=== PATIENT | female | born 1970 | race Caucasian/White ===

== ENCOUNTER 2021-11-28 14:43 | Outpatient (CLI) | payer BC, SELFPAY ==
[2021-11-28 13:20] LABS: Albumin* 4.4 g/dL (3.3-5.0); Chloride* 100 mmol/L (96-114)
[2021-11-28 13:21] LABS: Potassium* 4.1 mmol/L (3.6-5.1); Sodium* 137 mmol/L (135-149)
[2021-11-28 13:23] LABS: Alanine Aminotransferase* 11 U/L (4-35); Alkaline Phosphatase* 62 U/L (40-150); Aspartate Amino Transferase* 34 U/L (12-35); Bilirubin Total* 0.7 mg/dL (0.1-1.5); Blood Urea Nitrogen* 8 mg/dL (7-30); Carbon Dioxide* 30 mmol/L (20-32); Cholesterol* 282 mg/dL (90-199); Creatinine* 0.6 mg/dL (0.5-1.5); Estimated Glomerular Filt Rate 109 ml/min; Glucose* 110 mg/dL (60-115); Total Protein* 7.6 g/dL (6.0-8.3); Triglycerides* 120 mg/dL (40-149)
[2021-11-28 13:24] LABS: Calcium* 9.7 mg/dL (8.4-10.6); HDL Cholesterol* 96 mg/dL (>=50); LDL Cholesterol Calculated 162 mg/dL (<100)
== END 2021-11-28 14:44 | disposition home or self-care (01) ==
PROVIDERS: PCP Family Medicine; Visit Provider Family Medicine
DX: Z00.00 Encounter for general adult medical examination without abnormal findings (principal); E78.5 Hyperlipidemia, unspecified; F41.9 Anxiety disorder, unspecified
CPT/HCPCS: 80053; 80061

== ENCOUNTER 2021-12-13 12:15 | Outpatient (CLI) | payer BC, SELFPAY ==
--- OUTSIDE RECORDS SUMMARY | 2021-12-20 09:02 | XMS_ITS | Encounter Summary ---
:1970 Author Organization [facility] Address [address] [place] [address] Care Team Providers Name Role Phone Unavailable Primary Care Provider Unavailable Encounter Details Date Type Department Care Team Description 10/03/2011 Hospital Encounter [facility] Jim Schultz, P.A.-C. [address] [place], [place] [phone] (Wo rk) Social History Tobacco Use Types Packs/Day Years Used Date Smoking Tobacco: Never Assessed Sex Assigned at Date Recorded Not on file documented as of this encounter Miscellaneous Notes Telephone Encounter - Conversion, Historical Provider Ser - 10/03/2011 12:00 AM CDT [id number] Please call patient at [phone] She has some questions that she did not get answered at visit today thanks [facility] Document Id: [id number] Telephone Encounter - Radha Donald R.N. - 10/03/2011 12:00 AM CDT [id number] Patient called and reports that she just recalled that she has had some recurrent problems with her right hip dislocating. Last occurred about 2 months ago. Pain level in hip today is 3-4. She is to follow up with you in 4-6 weeks. Do you still want her to go to therapy for her right knee? Please callpatient at number listed below. Source[facility] Document Id: [id number] Telephone Encounter - Radha Donald R.N. - 10/03/2011 12:00 AM CDT [id number] Telephone call to patient regarding hip pain and therapy. Discussed this with CULLEN Terrell .and she recommended that patient tell the physical therapist about her hip pain when she goes for her PT appointment. Patient voices understanding. Source: [facility] Document Id: [id number] documented in this encounter Plan of Treatment Not on filedocumented as of this encounter Visit Diagnoses Not on filedocumented in this encounter
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
--- OUTSIDE RECORDS SUMMARY | 2021-12-20 09:02 | XMS_ITS | Encounter Summary ---
:1970 Author Organization [facility] Address [address] [place] [address] Care Team Providers Name Role Phone Catarina Hutton M.D. Primary Care Provider [phone] Encounter Details Date Type Department Care Team Description 08/26/2019 Orders Only RST PCP [facility] MNT Staci Hutton Mammogram Catarina Woody M.D. Breast Cancer [address] [place] [phone] (Wo rk) Social History Tobacco Use Types [...] on file documented as of this encounter Plan of Treatment Not on filedocumented as of this encounter Visit Diagnoses Diagnosis Screening Mammogram Breast Cancer documented in this encounter Additional Health Concerns Assessment Noted Time PHQ-9 Depression Total Score: 11 04/13/2012 12:[address] documented as of this encounter Care Teams Diamond Selector Relationship Specialty Start Date End Date Catarina Hutton M.D. PCP - General Family Medicine 01/05/[address] [place] [phone] documented as of this encounter
--- OUTSIDE RECORDS SUMMARY | 2021-12-20 09:02 | XMS_ITS | Encounter Summary ---
:1970 Author Organization [facility] Address [address] [place] [address] Care Team Providers Name Role Phone Catarina Hutton M.D. Primary Care Provider [phone] Reason for Visit Reason Comments Annual Exam Gynecologic Exam Outpatient (Routine) - Closed Specialty Diagnoses / Procedures Referred By Contact Refer red To Contact Family Medicine Diagnoses FAM EST [facility] M.D. [address] [place] [phone] Referral ID Status Reason Start Date Expiration Date Visits Requ ested Visits Authorized [id number] Closed 01/09/2018 01/09/2019 1 1 Encounter Details Date Type Department Care Team Description 01/27/2018 Office Visit Department of [facility] Edison Hutton reventive Gynecological Exam (Primary Dx); Cheryl Stein M.D. Pain Thoracic Spine; [place] [address] Pap Smea r Examination [address] [address] [place], [place] [phone] (Work) [phone] Social History Tobacco Use Types Packs/Day Years [...] Sign Reading Time Taken Comments Blood Pressure 125/76 01/27/2018 2:50 PM HYDRAULIC BULL RIVETER OPERATOR Pulse 77 01/27/2018 2:50 PM HYDRAULIC BULL RIVETER OPERATOR Temperature - - Respiratory Rate - - Oxygen Saturation - - Inhaled Oxygen Concentration - - Weight 47 kg (103 lb 9.9 oz) 01/27/2018 2:50 PM HYDRAULIC BULL RIVETER OPERATOR Height 156 cm (5' 1.42) 01/27/2018 2:50 PM HYDRAULIC BULL RIVETER OPERATOR Body Mass Index 19.31 01/27/2018 2:50 PM HYDRAULIC BULL RIVETER OPERATOR documented in this encounter Progress Notes Catarina Hutton M.D. - 01/27/2018 3:00 PM CST CHIEF COMPLAINT / REASON FOR VISIT Carly Doty is a 47 y.o. female who presents for evaluation of Annual Exam and Gynecologic Exam. HISTORY OF PRESENT ILLNESS Carly presents today for a gynecologic exam. She has had cervical cancer in the past which was treated with cryotherapy per her report. She has not recently had a pap smear. ?? Concerning her sore throat, she has noticed some improvement since starting omeprazole approximatelytwo weeks ago. ?? She also notes that she has been experiencing some back pain. She had back pain with pancreatitis inthe past and wonders about checking a lipase. She additionally has some left sided pelvic pain that has been present for quite some time. She believes that the pelvic pain is aggravated when she lifts something too heavy. She has noticed a bulge in the left lower quadrant when she wakes up in the morning. Brief Review of Systems: A brief review of systems was negative except for that mentioned in the history of present of illness. Current Outpatient Medications Medication Sig ??? raNITIdine (ZANTAC) 150 mg tablet Take 1 tablet (150 mg total) by mouth 2 (two) times a day. ??? omeprazole (PriLOSEC) [address] capsule Take 1 capsule (20 mg total) by mouth daily. Allergies Allergen Reactions ??? Meperidine Itching DEMEROL ??? Morphine Other (see comments) PHYSICAL EXAM BP 125/76 (BP Location: Left arm, Patient Position: Sitting, Cuff Size: Regular) Pulse 77 Ht 156cm Wt 47 kg BMI 19.31 kg/m?? Body mass index is 19.31 kg/m??. Constitutional: She appears well-developed. Pulmonary/Chest: Right breast exhibits no inverted nipple, no mass, no nipple discharge??and no skinchange. Left breast exhibits no inverted nipple, no mass, no nipple discharge??and no skin change. Genitourinary: There is no rash, tenderness??or lesion??on the right labia. There is no rash, tenderness??or lesion??on the left labia. Uterus is not enlarged??and not tender. Cervix exhibits no motiontenderness??and no discharge. Right adnexum displays no mass??and no tenderness. Left adnexum displays no mass??and no tenderness. No erythema??in the vagina. No vaginal discharge??found. Genitourinary Comments: She had tenderness to palpation of the uterine fundus. ?? Musculoskeletal: No tenderness to palpation of the left upper and mid back. DIAGNOSTICS: Results for orders placed or performed in visit on 01/27/18 Lipase Result Value Ref Range Lipase, S 43 13 - 60 U/L ASSESSMENT/PLAN: #1 Preventive Gynecological Exam Pap smear with HPV screening performed. We will need to look for details of cervical cancer history.Patient prefers to monitor pelvic pain for now. Discussed the possibility of a hernia. #2 Pain Thoracic Spine Lipase level obtained as patient has had back pain in the past with pancreatitis. This was normal. By signing my name below, I, Glenn Adler, attest that this documentation has been prepared under the direction and in the presence of Dr. Catarina Arriola M.D. Electronically Signed: cyndie Cabrera. 01/27/2018. 4:55 PM . ICatarina M.D., personally performed the services described in this documentation.All medical record entries made by the scribe were at my direction and in my presence. I have reviewed the chart and discharge instructions (if applicable) and agree that the record reflects my personal performance and is accurate and complete. Catarina Arriola M.D. . 01/28/2018. 9:08 AM. AULIC BULL RIVETER OPERATOR documented in this encounter Plan of Treatment Not on filedocumented as of this encounter Procedures Procedure Name Priority Date/Time Associated Diagnosis Comme nts HPV WITH Routine 01/27/2018 3:33 PM Pap Smear Results f or this GENOTYPING, PCR, HYDRAULIC BULL RIVETER OPERATOR Examination procedure a re in THINPREP the results section. LIPASE, S/P Routine 01/27/2018 2:31 PM Pain Thoracic Spine Re sults for this HYDRAULIC BULL RIVETER OPERATOR procedure are i n the results section. PATHOLOGY PERINATAL TECH Routine 01/27/2018 12:00 AM Pap Smear Results for this CYTOLOGY HYDRAULIC BULL RIVETER OPERATOR Examination procedure are i n the results section. documented in this encounter Results HPV with Genotyping, PCR, ThinPrep (01/27/2018 3:33 PM HYDRAULIC BULL RIVETER OPERATOR) Patholo gist Method Time Signature Specimen cervix 02/02/2018 [facility] Source 9:22 PM HYDRAULIC BULL RIVETER OPERATOR LABORATORIES - [facility] HPV High Risk Negative Negative 02/02/2018 [facility] type 16, PCR 9:22 PM HYDRAULIC BULL RIVETER OPERATOR LABORATORIES - [facility] HPV High Risk Negative Negative 02/02/2018 [facility] type 18, PCR 9:22 PM HYDRAULIC BULL RIVETER OPERATOR LAB[facility]ATORIES - [facility] HPV other Negative Negative 02/02/2018 [facility] High Risk 9:22 PM HYDRAULIC BULL RIVETER OPERATOR LABORATORIES - types, PCR [facility] Comment: The following Other High Risk HPV types were not detected: 31, 33, 35, 39, 45, 51, 52, 56, 58, 59, 66, and 68 Specimen Anatomical Collection Method Collection Time Receive d Time (Source) Location / / Volume Laterality Varies 01/27/2018 3:33 PM 8 7:25 (Cervix/Endocerv HYDRAULIC BULL RIVETER OPERATOR AM HYDRAULIC BULL RIVETER OPERATOR ix) Catarina Arriola M.D. LAB MICROBIOLOGY - [facility] ORDERABLES Performing Organization Address City/State/ZIP Code Phon e Number [facility]ATORIES - [address] [place], [place] [address] [facility] Lipase (01/27/2018 2:31 PM HYDRAULIC BULL RIVETER OPERATOR) P athologist Signature Lipase, S 43 13 - 60 U/L 01/27/2018 [facility] 3:28 PM HYDRAULIC BULL RIVETER OPERATOR [facility] Specimen Anatomical Collection Method Collection Time Receive d Time (Source) Location / / Volume Laterality Blood (Blood, 01/27/2018 2:31 PM 01/28/20 18 3:21 Venous) HYDRAULIC BULL RIVETER OPERATOR PM HYDRAULIC BULL RIVETER OPERATOR Catarina Arriola M.D. LAB BLOOD ADD-ON Performing Organization Address City/[facility]/ZIP Code Phon e Number [facility]- [address] [address] [facility] Pathology PERINATAL TECH Cytology (01/27/2018 12:00 AM HYDRAULIC BULL RIVETER OPERATOR) Component Value Ref Test Analysis Performed At [facility] Range Method Time Signature PATHOLOGY PERINATAL TECH Patient Name: CARLY DOTYATH EAU CYTOLOGY MR#: [id number] ARNULFO Submitting Physician: KETAN ARRIOLA MD, CATARINA ??[id number] Specimen #[id number] Performing Lab: ??[facility] [place] [facility] [place] ? [address] [place] [address] CLINICAL HISTORY: Last menstrual period: Status: Pap Type: Routine Pap Clinical History/Status (Select all that apply): Other Ancillary Testing: HPV with Genotyping, PCR, ThinPrep (order separately in [place] [address]) Source: ThinPrep cervical/endocervical specimen [ThinPrep vial] Diagnosis Specimen Adequacy: Satisfactory for interpretat ion : endocervical or transformation zone component present. General Categorization: Negative for intraepithelial lesion or malignancy. ?? Comment HPV with Genotyping, PCR, ThinPrep, testing performed by [facility] HPV High Risk type 16, PCR ? NEGATIVE HPV High Risk type 18, PCR ? NEGATIVE HPV other High Risk types, PCR ? NEGATIVE The PAP smear is not a diagnostic proced ure and should not be used as the sole means to detect cervical can cer. ??It is only a screening procedure to aid in the detection of cervical cancer and its precursors. ??Both fals e-negative and false-positive results have been experienced. Specimen (Source) Anatomical Location Collection Method / Collectio n Time Received Time / Laterality Volume Thin Prep Vial 01/27/2018 01/27/2018 (Cervix/Endocervi x) Catarina Arriola M.D. LAB PAP COPATH ORDERABL ES Performing Organization Address City/[facility]/ZIP Code Phon e Number COPATH [address] [address] documented in this encounter Visit Diagnoses Diagnosis Preventive Gynecological Exam - Primary Pain Thoracic Spine Pap Smear Examination documented in this encounter Additional Health Concerns Assessment Noted Time PHQ-9 Depression Total Score: 11 04/13/2012 12:[address] documented as of this encounter Care Teams Belt Buckle Maker Relationship Specialty Start Date End Date Catarina Hutton M.D. PCP - General Family Medicine 01/05/[address] [place] [phone] documented as of this encounter
--- OUTSIDE RECORDS SUMMARY | 2021-12-20 09:02 | XMS_ITS | Encounter Summary ---
:1970 Author Organization [facility] Address [address] [place] [address] Care Team Providers Name Role Phone Catarina Hutton M.D. Primary Care Provider [phone] Reason for Visit Reason Comments Facial Pain Pt presents with lower jaw a nd dental pain. Pt is concerned for a sinus infection. Encounter Details Date Type Department Care Team Description 07/23/2018 [facility] Emile Finley, Pain Teeth (Primary Dx) Department P.A.-C. 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 Dental Pain (Malay)documented in this encounter Medications at Time of Discharge Medication Sig Dispensed Refills Start Date End Date amoxicillin (AMOXIL) 875 Take 1 tablet (875 20 tablet 0 mg tablet mg total) by mouth every 12 (twelve) hours. omeprazole (PriLOSEC) 20 Take 1 capsule (20 30 capsule 11 04/201701/09/[address] capsule mg total) by mouth daily. raNITIdine (ZANTAC) 150 Take 1 tablet (150 180 tablet 3 04/201701/13/2019 mg tablet mg total) by mouth 2 (two) times a day. documented as of this encounter ED Notes Emile Finley P.A.-C. - 07/23/2018 9:07 PM CDT Images from the original note were not included. SUBJECTIVE CHIEF COMPLAINT/REASON FOR VISIT Facial Pain (Pt presents with lower jaw and dental pain. Pt is concerned for a sinus infection.) HISTORY OF PRESENT ILLNESS A 48-year-old female presents to the ER with complaints of right lower molar tooth pain that began earlier today. Patient states that she experienced similar symptoms approximately 25 years ago and at that time was diagnosed with a sinus infection. She believes that she is experiencing a sinus infection once again. Her symptoms began earlier today and she points to the right lower 2nd molar as the source of the pain. She did know some congestion this evening. She denies fever chills maxillary or frontal sinus pain or sinus pressure. She has not taken anything to alleviate the symptoms. Nothing seems to make the symptoms better or worse. REVIEW OF SYSTEMS Constitutional: Negative for appetite change and fever. HENT: Positive for congestion and dental problem. Negative for ear pain, facial swelling, rhinorrhea, sinus pressure, sore throat, trouble swallowing and voice change. Eyes: Negative for visual disturbance. Respiratory: Negative for cough, shortness of breath and wheezing. Cardiovascular: Negative for chest pain. Gastrointestinal: Negative for abdominal pain, diarrhea and vomiting. Genitourinary: Negative for dysuria and frequency. Musculoskeletal: Negative for back pain. Skin: Negative for rash. Neurological: Negative for headaches. Hematological: Negative for adenopathy. OBJECTIVE Initial Vitals [07/23/182048] Temperature Pulse Rate Heart Rate Resp Rate Blood Pressure SpO2 36.6 ??C 106 -- 18 135/78 98 % Pain Score 4 PHYSICAL EXAMINATION Constitutional: She appears well-developed and well-nourished. HENT: Head: Normocephalic and atraumatic. Head is without raccoon's eyes and without Samson's sign. There is normal jaw occlusion. Jaw: No tenderness or motion pain over the right jaw. No tenderness and motion pain over the left jaw. Nose: Nose normal. No rhinorrhea. Mouth/Throat: Oropharynx is clear and moist. Mucous membranes are moist. Eyes: Pupils are equal, round, and reactive to light. Neck: Trachea normal. Neck supple. No neck adenopathy. Cardiovascular: Normal rate, regular rhythm, S1 normal, S2 normal and normal heart sounds. Pulmonary/Chest: Effort normal and breath sounds normal. Abdominal: Soft. Bowel sounds are normal. There is no tenderness. Neurological: She is alert and oriented to person, place, and time. Skin: Skin is warm. Nursing note and vitals reviewed. ASSESSMENT/PLAN Impression and Plan Patient appears well. No tenderness to palpation or percussion over the frontal or maxillary sinuses. Patient's symptoms and exam are consistent with possible dental infection. Patient is placed on amoxicillin and is encouraged to see her dentist this week. Return to ER warnings given. Patient is discharged in good condition.. Final Diagnoses: as of Jul 23 2110 Pain Teeth Emile Finley, P.A.-C. 07/23/182110 documented in this encounter Plan of Treatment Not on filedocumented as of this encounter Visit Diagnoses Diagnosis Pain Teeth - Primary documented in this encounter Additional Health Concerns Assessment Noted Time PHQ-9 Depression Total Score: 11 04/13/2012 12:[address] documented as of this encounter Care Teams Tape Transferrer Relationship Specialty Start Date End Date Catarina Hutton M.D. PCP - General Family Medicine 01/05/[address] [place] [phone] documented as of this encounter
--- OUTSIDE RECORDS SUMMARY | 2021-12-20 09:02 | XMS_ITS | Encounter Summary ---
:1970 Author Organization [facility] Address [address] [place] [address] Care Team Providers Name Role Phone Catarina Hutton M.D. Primary Care Provider [phone] Encounter Details Date Type Department Care Team Description 02/25/2018 Orders Only Department of Family Kamran Hutton Medicine, [place] [facility], in [address] [address] [place], [place] [phone] (W ork) [phone] Social History Tobacco Use Types Packs/Day Years [...] Diagnoses Not on filedocumented in this encounter Additional Health Concerns Assessment Noted Time PHQ-9 Depression Total Score: 11 04/13/2012 12:[address] documented as of this encounter Care Teams Stone Chimney Mason Relationship Specialty Start Date End Date Catarina Hutton M.D. PCP - General Family Medicine 01/05/[address] [place] [phone] documented as of this encounter
--- OUTSIDE RECORDS SUMMARY | 2021-12-20 09:02 | XMS_ITS | Encounter Summary ---
:1970 Author Organization [facility] Address [address] [place] [address] Care Team Providers Name Role Phone Unavailable Primary Care Provider Unavailable Encounter Details Date Type Department Care Team Description 09/26/2011 Hospital Encounter HX NO MAPPING Cathleen Hampton, P.A.-C. [address] [place], [place] [phone] (Wo rk) Social History Tobacco Use Types Packs/Day Years Used Date Smoking Tobacco: Never Assessed Sex Assigned at Date Recorded Not on file documented as of this encounter Plan of Treatment Not on filedocumented as of this encounter Visit Diagnoses Not on filedocumented in this encounter
--- OUTSIDE RECORDS SUMMARY | 2021-12-20 09:02 | XMS_ITS | Encounter Summary ---
:1970 Author Organization [facility] Address [address] [place] [address] Care Team Providers Name Role Phone Unavailable Primary Care Provider Unavailable Reason for Visit Reason Comments Rib Injury Patient presents to the ED w ith bilateral rib pain x one week. Encounter Details Date Type Department Care Team Description 09/04/2017 Emergency [place] [facility] Lb Granados V. Elevated Liver Enzyme Test (Primary Dx); Huyen Castro M.D. Pain Low Back Mechanical; [address] [place] [address] [address] [facility] [place] [id number] [phone] Social History Tobacco Use Types Packs/Day Years Used Date Smoking Tobacco: Every Day Smokeless Tobacco: Never Sex Assigned at Date Recorded Not on file documented as of this encounter Last Filed Vital Signs Vital Sign Reading Time Taken Comments Blood Pressure 134/92 09/04/2017 12:33 PM CDT Pulse 96 09/04/2017 12:33 PM CDT Temperature 36.9 ??C (98.4 ??F) 09/04/2017 11:09 AM CDT Respiratory Rate 22 09/04/2017 12:33 PM CDT Oxygen Saturation 96% 09/04/2017 12:33 PM CDT Inhaled Oxygen Concentration - - Weight 47.1 kg (103 lb 13.4 oz) 09/04/2017 11:10 AM CDT Height - - Body Mass Index 20.39 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 - 09/04/2017 12:27 PM CDT Stop alcohol and follow up with pcp in 2 weeks for recheck of lfts. Use aspercreme, lidocare patches, tylenol (up to 3 grams per day) for back pain. Advise tobacco dependence AttachmentsThe following attachments cannot be sent through Care Everywhere.Back Pain Adult (South African)documented in this encounter ED Notes Lb Grnaados Jr., M.D. - 09/04/2017 12:16 PM CDT SUBJECTIVE CHIEF COMPLAINT/REASON FOR VISIT Rib Injury (Patient presents to the ED with bilateral rib pain x one week.) HISTORY OF PRESENT ILLNESS This is a 47 yo female who has a history of smoking and alcohol dependence and pancreatitis. She presents with mid back pain. Pain is continuous, sharp, located in mid back. She has been helping her brother move recently so thinks it might be msk pain but is concerned about recurrent pancreatitis. No nausea, abdominal pain, diarrhea, constipation, vomiting, fever, chills. No travel or sick contacts REVIEW OF SYSTEMS Constitutional: Negative. HENT: Negative. Eyes: Negative. Respiratory: Negative. Cardiovascular: Negative. Gastrointestinal: Negative. Endocrine: Negative. Genitourinary: Negative. Musculoskeletal: Positive for back pain. Skin: Negative. Allergic/Immunologic: Negative. Neurological: Negative. Hematological: Negative. Psychiatric/Behavioral: Negative. OBJECTIVE Initial Vitals [09/04/17 1109] Temperature Pulse Rate Heart Rate Resp Rate Blood Pressure SpO2 36.9 ??C 85 -- 16 135/86 97 % Pain Score 0 - No pain PHYSICAL EXAMINATION Constitutional: She appears well-developed and well-nourished. HENT: Head: Normocephalic and atraumatic. Right Ear: Tympanic membrane normal. Left Ear: Tympanic membrane normal. Nose: Nose normal. Mouth/Throat: Oropharynx is clear and moist. Mucous membranes are moist. Dental: Good dentition. Eyes: Conjunctivae and EOM are normal. Pupils are equal, round, and reactive to light. Neck: Normal range of motion. Neck supple. Cardiovascular: Normal rate, regular rhythm, S1 normal, S2 normal and normal heart sounds. Pulses are strong and palpable. Capillary refill: takes less than 3 seconds, Pulmonary/Chest: Effort normal and breath sounds normal. There is normal air entry. Abdominal: Soft. Bowel sounds are normal. Musculoskeletal: Normal range of motion. No spinal ttp, mild paraspinal muscle discomfort. Neurological: She is alert and oriented to person, place, and time. She has normal reflexes. Skin: Skin is warm, dry, intact and normal color. Psychiatric: She has a normal mood and affect. Her behavior is normal. Judgment and thought content normal. ASSESSMENT/PLAN Impression and Plan Back pain - most likely musculoskeletal. Did labs to evaluate for other causes. Nl labs except elevated lfts (slightly). Advise stopping alcohol intake and follow up with pcp in 2-3 week for recheck of lfts. Back pain most consistent with musculoskeletal back pain. Advise aspercreme, lidocare, tylenol (up to 3 grams daily) for pain control. Tobacco dependence - advised smoking cessation. . Reviewed and summarized previous medical records including: Lab results, EKG images/reports and Documentation from previous visits. with the following comments: see ed course. ECG results: normal ECG CPR: No CPR performed ED Course as of Sep 04 1227 Araceli Sep 04, 2017 1206 Lipase 33 1206 Trop negative 1206 Creatinine negative 1207 Crp nl 1207 Cbc nl 1207 Ast and alt slightly elevated 1207 Creatinine nl Final Diagnoses: as of Sep 04 1227 Elevated Liver Enzyme Test Pain Low Back Mechanical Dependence Nicotine Lb Granados Jr., M.D. 09/04/17 1227 documented in this encounter Plan of Treatment Not on filedocumented as of this encounter Procedures Procedure Name Priority Date/Time Associated Comments Diagnosis ECG STAT 09/04/2017 12:22 Results for this PM CDT procedure are i n the results section. CBC WITH DIFFERENTIAL, STAT 09/04/2017 11:39 R esults for this B AM CDT procedure are i n the results section. LIPASE, S/P STAT 09/04/2017 11:39 Results for this AM CDT procedure are i n the results section. COMPREHENSIVE STAT 09/04/2017 11:39 Results fo r this METABOLIC PANEL, S/P AM CDT procedu re are in the results section. C-REACTIVE PROTEIN STAT 09/04/2017 11:38 Resul ts for this (CRP), S/P AM CDT procedure are i n the results section. TROPONIN T, 5TH GEN, P STAT 09/04/2017 11:38 R esults for this AM CDT procedure are i n the results section. documented in this encounter Results ECG 12 Lead (STAT) (09/04/2017 12:22 PM CDT) P athologist Signature Ventricular Rate 76 BPM MUSE ECG/Min LA Interval 150 ms MUSE QRSD Interval 74 ms MUSE QT Interval 390 ms MUSE QTC Interval 438 ms MUSE P Lewis 56 degrees MUSE R Lewis 27 degrees MUSE T Wave Lewis 53 degrees MUSE Specimen Anatomical Collection Method Collection Time Receive d Time (Source) Location / / Volume Laterality 09/04/2017 12:22 09/04/2017 PM CDT 12:48 PM CDT Impressions MUSE - 09/04/2017 12:48 PM CDT Normal sinus rhythm Normal ECG When compared with ECG of 09-APR-2012 09 :12, No significant change was found Narrative This result has an attachment that is no t available. Lb Granados Jr., M.D. ECG ORDERABLES Performing Organization Address City/State/ZIP Code Phon e Number MUSE MUSE NA (ABNORMAL) Comprehensive Metabolic Panel (09/04/2017 11:39 AM CDT) Analysis Performed At Patho logist Time Signature Potassium, P 4.1 3.6 - 5.2 09/04/2017 [facility] mmol/L 12:03 PM [facility] Sodium, P 142 135 - 145 09/04/2017 [facility] mmol/L 12:03 PM T [facility] Chloride, P 103 98 - 107 09/04/2017 [facility] mmol/L 12:03 PM T [facility] Bicarbonate, P 26 22 - 29 09/04/2017 [facility] mmol/L 12:03 PM T [facility] Anion Gap, P 13 7 - 15 09/04/2017 [facility] 12:03 PM T [facility] BUN (Blood Urea 6 6 - 21 09/04/2017 [facility] Nitrogen), P mg/dL 12:03 PM T [facility] Creatinine 0.52 (L) 0.59 - 09/04/2017 [facility] 1.04 mg/dL 12:03 [facility] eGFR-Black/Afri >90 >=60 09/04/2017 [facility] can Eritrean mL/min/BSA 12:03 PM [facility] Comment: ----ADDITIONAL INFORMATION---- Estimated GFR calculated using the 2009 CKD_EPI creatinine equation. eGFR Non-Black/ >90 >=60 mL/min/BSA 09/04/2017 12:03 PM [facility] Comment: ----ADDITIONAL INFORMATION---- Estimated GFR calculated using the 2009 CKD_EPI creatinine equation. Calcium, Total, P 9.4 8.6 - 10.0 09/04/2017 12:03 PM [facility] mg/dL [facility] Glucose, P 97 70 - 140 mg/dL 09/04/2017 12:03 PM [facility] [place] 2[facility] Protein, Total, P 7.1 6.3 - 7.9 g/dL 09/04/2017 12:03 PM [facility] [place] 2[facility] Albumin, P 4.0 3.5 - 5.0 g/dL 09/04/2017 12:03 PM [facility] [place] 2[facility] Aspartate 91 (H) 8 - 43 U/L 09/04/2017 12:03 PM [facility] Aminotransferase (AST), P [facility] Alkaline Phosphatase, P 61 39 - 100 U/L 09/04/2017 12 :03 PM [facility] [place]NOTE 2[facility] LAB Alanine Aminotransferase 64 (H) 7 - 45 U/L 09/04/2017 12: 03 PM [facility] (ALT), P [facility] Bilirubin, Total, P 0.5 <=1.2 mg/dL 09/04/2017 12:03 P M [facility] [place]NOTE 2[facility] LAB Specimen Anatomical Collection Method Collection Time Receive d Time (Source) Location / / Volume Laterality Blood 09/04/2017 11:39 09/04/2017 AM CDT 11:40 AM CDT Lb Granados Jr., M.D. LAB BLOOD ADD-ON Performing Organization Address City/State/ZIP Code Phon e Number [facility] [id number] [address] [place] [facility] Lipase (09/04/2017 11:39 AM CDT) P athologist Signature Lipase, P 33 13 - 60 U/L 09/04/2017 [facility] 12:03 PM [facility] Specimen Anatomical Collection Method Collection Time Receive d Time (Source) Location / / Volume Laterality Blood (Blood, 09/04/2017 11:39 09/04/2017 Venous) AM CDT 11:40 AM CDT Lb Granados Jr., M.D. LAB BLOOD ADD-ON Performing Organization Address City/State/ZIP Code Phon e Number [facility]- [id number] [address] [place] [facility] (ABNORMAL) CBC with Differential, Blood (09/04/2017 11:39 AM CDT) Patholo gist Method Time Signature Hemoglobin 12.7 11.6 - 09/04/2017 [facility] 15.0 g/dL 11:53 AM [facility] Hematocrit 37.3 35.5 - 09/04/2017 [facility] 44.9 % 11:53 AM [facility] Erythrocytes 3.30 (L) 3.92 - 09/04/2017 [facility] 5.13 11:53 AM [facility] [place] [employer] x10(12)/L [facility] MCV 113.0 (H) 78.2 - 09/04/2017 [facility] 97.9 fL 11:53 AM [facility] RBC Distrib Width 11.8 (L) 12.2 - 09/04/2017 [facility] 16.1 % 11:53 AM [facility] Platelet Count 203 157 - 371 09/04/2017 [facility] x10(9)/L 11:53 AM [facility] Leukocytes 4.5 3.4 - 9.6 09/04/2017 [facility] x10(9)/L 11:53 AM [facility] Neutrophils 2.56 1.56 - 09/04/2017 [facility] 6.45 11:53 AM [facility] [place] [employer] x10(9)/L [facility] [employer] Lymphocytes 1.34 0.95 - 09/04/2017 [facility] 3.07 11:53 AM CDT [facility]ALTH x10(9)/L [facility] [place] [facility] Monocytes 0.43 0.26 - 09/04/2017 [facility] 0.81 11:53 AM CDT [facility]ALTH x10(9)/L [facility] Eosinophils 0.19 0.03 - 09/04/2017 [facility] 0.48 11:53 AM CDT HEALTH x10(9)/L [facility] Basophils 0.02 0.01 - 09/04/2017 [facility] 0.08 11:53 AM CDT HEALTH x10(9)/L [facility] Specimen Anatomical Collection Method Collection Time Receive d Time (Source) Location / / Volume Laterality Blood (Blood, 09/04/2017 11:39 09/04/2017 Venous) AM CDT 11:40 AM CDT Lb Granados Jr., M.D. LAB BLOOD ADD-ON Performing Organization Address [facility] Phon e Number [address] [address] [place] [facility] Troponin T (09/04/2017 11:38 AM CDT) P athologist Signature Troponin T, S <0.01 <0.01 ng/mL 09/04/2017 [facility] 12:02 PM CDT [facility] Comment: Biotin has been identified by the billy alexander as a potential interfering substance. ??Higher concentr ations of biotin may be found in multivitamins, hair/nail supple ments, and workout supplements. ??If the result does not ma [facility] clinical observations, repeat testing after patient refrains fr om the use of supplements for at least 12 hours. Specimen Anatomical Collection Method Collection Time Receive d Time (Source) Location / / Volume Laterality Blood (Blood, 09/04/2017 11:38 09/04/2017 Venous) AM CDT 11:40 AM CDT Lb Granados Jr., M.D. LAB BLOOD ADD-ON Performing Organization Address [facility] Phon e Number [address] [address] [place] [facility] CRP (C-Reactive Protein) (09/04/2017 11:38 AM CDT) P athologist Signature C-Reactive 1.3 <=8.0 mg/L 09/04/2017 [facility] Protein (CRP), 12:02 PM CDT [facility] Specimen Anatomical Collection Method Collection Time Receive d Time (Source) Location / / Volume Laterality Blood (Blood, 09/04/2017 11:38 09/04/2017 Venous) AM CDT 11:40 AM CDT Lb Granados Jr., M.D. LAB BLOOD ADD-ON Performing Organization Address City/State/ZIP Code Phon e Number [facility]- [address] [place] [address] [place] [facility] documented in this encounter Visit Diagnoses Diagnosis Elevated Liver Enzyme Test - Primary Pain Low Back Mechanical Dependence Nicotine documented in this encounter Additional Health Concerns Assessment Noted Time PHQ-9 Depression Total Score: 11 04/13/2012 12:[address] documented as of this encounter
--- OUTSIDE RECORDS SUMMARY | 2021-12-20 09:02 | XMS_ITS | Encounter Summary ---
:1970 Author Organization [facility] Address [address] [place] [address] Care Team Providers Name Role Phone Catarina Hutton M.D. Primary Care Provider [phone] Encounter Details Date Type Department Care Team Description 08/14/2021 Orders Only [facility] PCP [facility] Roxie Orozco, Rashawn Giordano M.D. Diabetes Mellitus [address] [place] [address] Social History Tobacco Use Types Packs/Day Years [...] as of this encounter Plan of Treatment Scheduled Orders Name Type Priority Associated Diagnoses Order S chedule Glucose, Fasting Lab Routine Screening Examination Ex pected: 08/28/2021, Diabetes Mellitus Expires: 1 04/13/2021 documented as of this encounter Visit Diagnoses Diagnosis Screening Examination Diabetes Mellitus documented in this encounter Additional Health Concerns Assessment Noted Time PHQ-9 Depression Total Score: 11 04/13/2012 12:[address] documented as of this encounter Care Teams Winch Operator Relationship Specialty Start Date End Date Catarina Hutton M.D. PCP - General Family Medicine 01/05/[address] [place] [phone] documented as of this encounter
--- OUTSIDE RECORDS SUMMARY | 2021-12-20 09:02 | XMS_ITS | Encounter Summary ---
:1970 Author Organization [facility] Address [address] [place] [address] Care Team Providers Name Role Phone Unavailable Primary Care Provider Unavailable Encounter Details Date Type Department Care Team Description 09/26/2011 Hospital Encounter HX [facility] XRAY Provider, Histori janet Social History Tobacco Use Types Packs/Day Years Used Date Smoking Tobacco: Never Assessed Sex Assigned at Date Recorded Not on file documented as of this encounter Plan of Treatment Not on filedocumented as of this encounter Visit Diagnoses Not on filedocumented in this encounter
--- OUTSIDE RECORDS SUMMARY | 2021-12-20 09:02 | XMS_ITS | Encounter Summary ---
:1970 Author Organization [facility] Address [address] [place] [address] Care Team Providers Name Role Phone Unavailable Primary Care Provider Unavailable Encounter Details Date Type Department Care Team Description 09/26/2011 Hospital Encounter HX NO MAPPING Cathleen Hampton, P.A.-C. [address] [place], [place] [phone] (Wo rk) Social History Tobacco Use Types Packs/Day Years Used Date Smoking Tobacco: Never Assessed Sex Assigned at Date Recorded Not on file documented as of this encounter Plan of Treatment Not on filedocumented as of this encounter Visit Diagnoses Not on filedocumented in this encounter
--- OUTSIDE RECORDS SUMMARY | 2021-12-20 09:02 | XMS_ITS | Clinical Summary ---
:1970 Author Organization [facility] Address [address] [place] [address] Care Team Providers Name Role Phone Catarina Hutton M.D. Primary Care Provider [phone] Source Comments Patient records contain information from all sites at [facility]. For routine questions regarding patient records, call [phone] during business hours, M-F 8:00 AM - 5:00 PM Central Time. Record requests for emergency care only can be directed to [phone] at any time.[facility] Allergies Active Allergy Reactions Severity Noted Date Comments Meperidine Itching 06/05/2013 DEMEROL Morphine Other (see comments) 04/03/2011 Medications Medication Sig Dispensed Refills Start Date End Date Status amoxicillin (AMOXIL) Take 1 tablet 20 tablet 0 07/23/2018 Active 875 mg tablet (875 mg total) by mouth every 12 (twelve) hours. raNITIdine (ZANTAC) Take 1 tablet 180 tablet 0 01/13/2019 Active 150 mg tablet (150 mg total) by mouth 2 (two) times a day. Please advise visit needed for further refills. Active Problems Problem Noted Date Loss Hearing Sensorineural Unilateral 02/04/2012 Encounters Date Type Specialty Care Team Description 11/26/2021 Orders Only Catarina Hutton M.D. 11/13/2021 Orders Only Rick Denise Screening Mammogram Catarina Woody M.D. Breast Cancer 10/25/2021 Emergency Emergency Medicine Eugenio Montaño, Pain Chest Wall (Primary Dx); C.N.P. Contusion Rib C age Initial from Last 3 Months Family History Medical History Relation Name Comments No Known Problems Brother No Known Problems Father unknown Heart Mother Relation Name Status Comments Brother Father Mother Social History Tobacco Use Types Packs/Day Years [...] Assigned at Date Recorded Not on file Last Filed Vital Signs Vital Sign Reading Time Taken Comments Blood Pressure 125/81 10/25/2021 1:07 PM CDT Pulse 78 10/25/2021 1:07 PM CDT Temperature 36.8 ??C (98.2 ??F) 10/25/2021 1:07 PM CDT Respiratory Rate 16 10/25/2021 1:07 PM CDT Oxygen Saturation 98% 10/25/2021 1:07 PM CDT Inhaled Oxygen Concentration - - Weight 46.2 kg (101 lb 13.6 oz) 07/23/2018 8:49 PM CDT Height 156 cm (5' 1.42) 01/27/2018 2:50 PM CLIENT APPLICATION SUPPORT ENGINEER Body Mass Index 18.98 01/27/2018 2:50 PM CLIENT APPLICATION SUPPORT ENGINEER Plan of Treatment Health Maintenance Due Date Last Done Comments CT Colonography 1970 Cologuard 1970 Colonoscopy 1970 Colorectal Cancer Screening 1970 FIT 1970 HIV Screening 1970 Hepatitis B Vaccines (1 of 3 - 3-dose 1971 series) Hepatitis C Screening 1970 Mammogram 1971 Tobacco Cessation counseling 1971 Pneumococcal vaccine (0-64 years) (1 1977 - PCV) Fasting Glucose for Diabetes 01/27/2021 01/27/2018, 018, Screening 02/02/2015 Depression Screening (Annual PHQ-2) 03/10/2021 Zoster Vaccines (1 of 2) 2021 COVID-19 Vaccine (4 - Booster for 05/15/2021 03/20/2021, , Pfizer series) 08/24/2020 Influenza Vaccine (#1) 2021 Cervical Cancer Screening 01/27/2023 01/27/2018, 01/27/2018 Lipid (Cholesterol) Screening 01/27/2023 01/27/2018 DTaP,Tdap,and Td Vaccines (2 - Td or 05/15/2025 05/16/2015 Tdap) Procedures Procedure Name Priority Date/Time Associated Comments Diagnosis DX RIBS LEFT 2 VIEWS RAD - Semiurgent 10/25/2021 1:24 Results for WITH CHEST (Fast; most ED PM CDT this procedur e POSTEROANTERIOR 1 VIEW patients; some are in the inpatients) results section. from Last 3 Months Results DX Ribs Left 2 Views with [...] Montaño C.N.P. IMThierno DIAGNOSTIC IMAGING PROCE DENISSE from Last 3 Months Insurance Payer Benefit Plan Subscriber ID Effective Phone Address Typ e / Group Dates JIMMY MARQUEZ [id number] 2018-[place] [phone] [place] [address] Care Teams Mass Communications Professor Relationship Specialty Start Date End Date Cabrera Catarina Denise M.D. PCP - General Family Medicine 01/05/[address] [place] [phone]
--- OUTSIDE RECORDS SUMMARY | 2021-12-20 09:02 | XMS_ITS | Encounter Summary ---
:1970 Author Organization [facility] Address [address] [place] [address] Care Team Providers Name Role Phone Catarina Hutton M.D. Primary Care Provider [phone] Encounter Details Date Type Department Care Team Description 01/27/2018 Hospital Encounter Department of [place] Elevated Liver Enzyme Test; Laboratory Medicine Catarina Denise staci Examination Diabetes Mellitus; [place] M[place]. Macrocytosis; [place] [phone] Screening Lipid [address] [place] [address] [place] [phone] Social History Tobacco Use Types Packs/Day Years [...] on file documented as of this encounter Medications at Time of Discharge Medication Sig Dispensed Refills Start Date End Date omeprazole (PriLOSEC) 20 Take 1 capsule (20 30 capsule 11 04/201701/09/[address] capsule mg total) by mouth daily. raNITIdine (ZANTAC) 150 Take 1 tablet (150 180 tablet 3 04/201701/13/2019 mg tablet mg total) by mouth 2 (two) times a day. documented as of this encounter Plan of Treatment Not on filedocumented as of this encounter Procedures Procedure Name Priority Date/Time Associated Diagnosis Comme nts LIPID PANEL, S Routine 01/27/2018 2:33 Screening Lipid Results for this PM PRODUCTION TEAM LEADER procedure are i n the results section. CBC WITHOUT Routine 01/27/2018 2:33 Macrocytosis Results for this DIFFERENTIAL, B PM PRODUCTION TEAM LEADER procedure ar e in the results section. GLUCOSE, FASTING, S/P Routine 01/27/2018 2:33 Screening Res ults for this PM PRODUCTION TEAM LEADER Examination Diabetes procedu re are in Mellitus the results section. COMPREHENSIVE Routine 01/27/2018 2:33 Elevated Liver Results f or this METABOLIC PANEL, S/P PM PRODUCTION TEAM LEADER Enzyme Test procedu re are in the results section. documented in this encounter Results (ABNORMAL) Lipid Panel (01/27/2018 2:33 PM PRODUCTION TEAM LEADER) athologist Signature Cholesterol, 273 (H) mg/dL 01/27/2018 [facility] Total 3:18 PM [facility] [place] [facility] Comment: ----REFERENCE VALUE---- Desirable: < 200 Borderline high: 200 - 239 High: > or = 240 Triglycerides 122 mg/dL 01/27/2018 3:18 PM [facility] [place] [facility] Comment: ----REFERENCE VALUE---- Normal: <150 Borderline high: 150-199 High: 200-499 Very high: > or =500 Cholesterol, HDL, S 96 >=50 mg/dL 01/27/2018 3:18 PM [facility] [place] Calculated LDL 153 (H) mg/dL 01/27/2018 3:18 PM [facility] [place] [facility] Comment: ----REFERENCE VALUE---- Desirable: <100 Above Desirable: 100-129 Borderline high: 130-159 High: 160-189 Very high: > or =190 Cholesterol, Non-HDL, 177 (H) mg/dL 01/27/2018 3:18 PM [facility] [place] [facility] Comment: ----REFERENCE VALUE---- Desirable: <130 Above Desirable: 130-159 Borderline high: 160-189 High: 190-219 Very high: > or =220 Specimen Anatomical Collection Method Collection Time Receive d Time (Source) Location / / Volume Laterality Blood (Blood, 01/27/2018 2:33 PM 01/28/20 18 2:34 Venous) PRODUCTION TEAM LEADER PM PRODUCTION TEAM LEADER Catarina Denise M.D. LAB BLOOD ADD-ON Performing Organization Address City/[facility] Phon e Number [address] [address] [place] [facility] (ABNORMAL) CBC without Differential (01/27/2018 2:33 PM PRODUCTION TEAM LEADER) Patholo gist Method Time Signature Hemoglobin 12.9 11.6 - 01/27/2018 [facility] 15.0 g/dL 2:58 PM [facility] Hematocrit 39.1 35.5 - 01/27/2018 [facility] 44.9 % 2:58 PM [facility] Erythrocytes 3.52 (L) 3.92 - 01/27/2018 [facility] 5.13 2:58 PM [facility] x10(12)/L [facility] MCV 111.1 (H) 78.2 - 01/27/2018 [facility] 97.9 fL 2:58 PM [facility] RBC Distrib Width 10.7 (L) 12.2 - 01/27/2018 [facility] 16.1 % 2:58 PM [facility] Platelet Count 239 157 - 371 01/27/2018 [facility] x10(9)/L 2:58 PM [facility] Leukocytes 7.7 3.4 - 9.6 01/27/2018 [facility] x10(9)/L 2:58 PM [facility] Specimen Anatomical Collection Method Collection Time Receive d Time (Source) Location / / Volume Laterality Blood (Blood, 01/27/2018 2:33 PM 01/28/20 18 2:34 Venous) PRODUCTION TEAM LEADER PM PRODUCTION TEAM LEADER Catarina Denise M.D. LAB BLOOD ADD-ON Performing Organization Address City/State/ZIP Code Phon e Number [facility] [address] [place] [phone] [place] [facility] Glucose, Fasting (01/27/2018 2:33 PM PRODUCTION TEAM LEADER) P athologist Signature Glucose, 82 70 - 99 01/27/2018 [facility] Fasting, S mg/dL 3:18 PM [facility] Specimen Anatomical Collection Method Collection Time Receive d Time (Source) Location / / Volume Laterality Blood (Blood, 01/27/2018 2:33 PM 01/28/20 18 2:34 Venous) PRODUCTION TEAM LEADER PM PRODUCTION TEAM LEADER Catarina Denise M.D. LAB BLOOD NON ADD-ON Performing Organization Address City/State/ZIP Code Phon e Number [facility]- [id number] [address] [place] [facility] (ABNORMAL) CMP (Comprehensive Metabolic Panel) (01/27/2018 2:33 PM PRODUCTION TEAM LEADER) Analysis Performed At Patho logist Time Signature Potassium, S 3.9 3.6 - 5.2 01/27/2018 [facility] mmol/L 3:18 PM [facility] Sodium, S 137 135 - 145 01/27/2018 [facility] mmol/L 3:18 PM [facility] Chloride, S 99 98 - 107 01/27/2018 [facility] mmol/L 3:18 PM [facility] Bicarbonate, S 26 22 - 29 01/27/2018 [facility] mmol/L 3:18 PM [facility] Anion Gap 12 7 - 15 01/27/2018 [facility] 3:18 PM [facility] BUN (Blood Urea 10 6 - 21 01/27/2018 [facility] Nitrogen), S mg/dL 3:18 PM [facility] Creatinine 0.57 (L) 0.59 - 01/27/2018 [facility] 1.04 mg/dL 3:18 PM [facility] eGFR-Non >90 >=60 01/27/2018 [facility] Black/ mL/min/BSA 3:18 PM [facility] Comment: ----ADDITIONAL INFORMATION---- Estimated GFR calculated using the 2009 CKD_EPI creatinine equation. eGFR-Black/ >90 >=60 mL/min/BSA 2017 3:18 PM [facility] Comment: ----ADDITIONAL INFORMATION---- Estimated GFR calculated using the 2009 CKD_EPI creatinine equation. Calcium, Total, S 9.3 8.6 - 10.0 mg/dL 01/27/2018 3:18 PM [facility] Glucose, S CANCELED mg/dL 01/27/2018 2:34 PM [facility] Comment: Test not performed. See Fasting Glucose result. Result canceled by the ancillary Protein, Total, S 6.9 6.3 - 7.9 g/dL 01/27/2018 3:18 P M [facility] Albumin, S 4.0 3.5 - 5.0 g/dL 01/27/2018 3:18 PM [facility] Aspartate Aminotransferase 28 8 - 43 U/L 01/27/2018 3 :18 PM [facility] Alkaline Phosphatase, S 63 35 - 104 U/L 01/27/2018 3: 18 PM [facility] Alanine Aminotransferase 15 7 - 45 U/L 01/27/2018 3:1 8 PM [facility] Bilirubin, Total, S 0.5 <=1.2 mg/dL 01/27/2018 3:18 PM [facility] Specimen Anatomical Collection Method Collection Time Receive d Time (Source) Location / / Volume Laterality Blood (Blood, 01/27/2018 2:33 PM 01/28/20 18 2:34 Venous) PRODUCTION TEAM LEADER PM PRODUCTION TEAM LEADER Catarina Denise M.D. LAB BLOOD ADD-ON Performing Organization Address City/State/ZIP Code Phon e Number [facility]- [address] [place] [phone] [place] [facility] documented in this encounter Visit Diagnoses Diagnosis Elevated Liver Enzyme Test Screening Examination Diabetes Mellitus Macrocytosis Screening Lipid documented in this encounter Additional Health Concerns Assessment Noted Time PHQ-9 Depression Total Score: 11 04/13/2012 12:[address] documented as of this encounter Care Teams Research Worker Encyclopedia Relationship Specialty Start Date End Date Catarina Hutton M.D. PCP - General Family Medicine 01/05/[address] [place] [address] [place] [phone] documented as of this encounter
--- OUTSIDE RECORDS SUMMARY | 2021-12-20 09:02 | XMS_ITS | Encounter Summary ---
:1970 Author Organization [facility] Address [address] [place] [address] Care Team Providers Name Role Phone Catarina Hutton M.D. Primary Care Provider [phone] Reason for Referral Specialty Diagnoses / Procedures Referred By Contact Refer red To Contact Kamran Hutton M.D. [address] [phone] Referral ID Status Reason Start Date Expiration Date Visits Requ ested Visits Authorized Encounter Details Date Type Department Care Team Description 11/26/2021 Orders Only [facility] PCP [facility] MNT Catarina Hutton M.D. [address] [place] [phone] (Wo rk) Social History Tobacco Use Types [...] of this encounter Plan of Treatment Scheduled Referrals Name Type Priority Associated Order Schedule Diagnoses Covid immunization Outpatient Referral Routine Ex pected: office visit 11/26/2021 Immuno/Booster (Approximate) , Expires: 11/26/2022 documented as of this encounter Visit Diagnoses Not on filedocumented in this encounter Additional Health Concerns Assessment Noted Time PHQ-9 Depression Total Score: 11 04/13/2012 12:[address] documented as of this encounter Care Teams Plant Hr Manager Relationship Specialty Start Date End Date Catarina Hutton M.D. PCP - General Family Medicine 01/05/[address] [place] [phone] documented as of this encounter
--- OUTSIDE RECORDS SUMMARY | 2021-12-20 09:02 | XMS_ITS | Encounter Summary ---
:1970 Author Organization [facility] Address [address] [place] [address] Care Team Providers Name Role Phone Catarina Hutton M.D. Primary Care Provider [phone] Encounter Details Date Type Department Care Team Description 01/27/2018 Orders Only Department of Family [facility] Thoracic Spine Medicine, Esteban Woody M.D. (Primary Dx) [address] [address] [place], [place] [phone] (W ork) [phone] Social History Tobacco Use Types Packs/Day Years [...] of this encounter Visit Diagnoses Diagnosis Pain Thoracic Spine - Primary documented in this encounter Additional Health Concerns Assessment Noted Time PHQ-9 Depression Total Score: 11 04/13/2012 12:[address] documented as of this encounter Care Teams Topography Technician Relationship Specialty Start Date End Date Catarina Hutton M.D. PCP - General Family Medicine 01/05/[address] [place] [phone] documented as of this encounter
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
--- OUTSIDE RECORDS SUMMARY | 2021-12-20 09:02 | XMS_ITS | Encounter Summary ---
:1970 Author Organization [facility] Address [address] [place] [address] Care Team Providers Name Role Phone Catarina Hutton M.D. Primary Care Provider [phone] Encounter Details Date Type Department Care Team Description 03/20/2021 Orders Only [facility] PCP [facility] Catarina Hutton M.D. [address] [place] [phone] (Wo rk) Social History Tobacco Use [...] documented as of this encounter Care Teams Wax Blender Relationship Specialty Start Date End Date Catarina Hutton M.D. PCP - General Family Medicine 01/05/[address] [place] [phone] documented as of this encounter
--- OUTSIDE RECORDS SUMMARY | 2021-12-20 09:02 | XMS_ITS | Encounter Summary ---
:1970 Author Organization [facility] Address [address] [place] [id number] Care Team Providers Name Role Phone Unavailable Primary Care Provider Unavailable Encounter Details Date Type Department Care Team Description 02/02/2015 Hospital Encounter HX [facility] ED Susan Cartwright M .D. Social History Tobacco Use Types Packs/Day Years Used Date Smoking Tobacco: Never Assessed Sex Assigned at Date Recorded Not on file documented as of this encounter Last Filed Vital Signs Vital Sign Reading Time Taken Comments Blood Pressure 131/89 02/02/2015 6:57 PM EPIDEMIOLOGY INTERN Pulse 104 02/02/2015 6:57 PM EPIDEMIOLOGY INTERN Temperature - - Respiratory Rate - - Oxygen Saturation - - Inhaled Oxygen Concentration - - Weight - - Height 152 cm (4' 11.84) 02/02/2015 6:57 PM EPIDEMIOLOGY INTERN Body Mass Index - - documented in this encounter Discharge Summaries Raul Duenas, RRenardN. - 02/02/2015 8:19 PM CST ED Discharge Instructions [address] [address] Name: CARLY DOTY Date of : 1970 12:00 AM Visit Date: 02/02/2015 6:53 PM [facility] Number: [id number] Address: [address] [place] [phone] Primary Care Provider: ALDEN SARGENT III, MD IMPORTANT: [facility] in [place] would like to thank you for allowing us to assist you with your healthcare needs. The following includes patient education materials and informationregarding your injury/illness. Diagnosis: Pain Back NOS Follow-Up Instructions: With: Address: When: ALDEN SARGENT [address] [place] [address] [phone] [facility] (1) Within AsNeeded Comments: If worsening or not getting better tomorrow. Your Upcoming Appointments: Date Time Location Provider No Appointments found Patient Education Materials: Neck/Back Pain [General] Both neck and back pain are usually caused by injury to the muscles or ligaments of the spine. Sometimes the disks that separate each bone of the spine may cause pain by putting pressure on a nearby nerve. Back and neck pain may appear after a sudden twisting/bending force (such as in a car accident),or sometimes after a simple awkward movement. In either case, muscle spasm is often present and addsto the pain. Acute neck and back pain usually gets better in one to two weeks. Pain related to disk disease, arthritis in the spinal joints or spinal stenosis (narrowing of the spinal canal) can become chronic and last for months or years. Home Care: ?? FOR NECK PAIN: Use a comfortable pillow that supports the head and keeps the spine in a neutral position. The position of the head should not be tilted forward or backward. ?? FOR BACK PAIN: You may need to stay in bed the first few days. But, as soon as possible, begin sitting or walking to avoid problems with prolonged bed rest (muscle weakness, worsening back stiffnessand pain, blood clots in the legs). ?? When in bed, try to find a position of comfort. A firm mattress is best. Try lying flat on your back with pillows under your knees. You can also try lying on your side with your knees bent up towards your chest and a pillow between your knees. ?? Avoid prolonged sitting. This puts more stress on the lower back than standing or walking. ?? During the first two days after injury, apply an ICE PACK to the painful area for 20 minutes every 2-4 hours. This will reduce swelling and pain. HEAT (hot shower, hot bath or heating pad) works well for muscle spasm. You can start with ice, then switch to heat after two days. Some patients feel best alternating ice and heat treatments. Use the one method that feels the best to you. ?? You may use acetaminophen (Tylenol) or ibuprofen (Motrin, Advil) to control pain, unless another pain medicine was prescribed. [NOTE: If you have chronic liver or kidney disease or ever had a stomach ulcer or GI bleeding, talk with your doctor before using these medicines.] ?? Be aware of safe lifting methods and do not lift anything over 15 pounds until all the pain is gone. Follow Up with your physician or this facility if your symptoms do not start to improve after one week. Physical therapy or further tests may be needed. [NOTE: If X-rays were taken, they will be reviewed by a radiologist. You will be notified of any newfindings that may affect your care.] Get Prompt Medical Attention if any of the following occur: ?? Pain becomes worse or spreads into your arms or legs ?? Weakness, numbness or pain in one or both arms or legs ?? Loss of bowel or bladder control ?? Numbness in the groin area ?? Difficulty walking ?? Fever of 100.4?F (38?C) or higher, or as directed by your healthcare provider ?? [id number] [facility], [address] [place] [address]. All rights reserved. This information is not intended as a substitute for professional medical care. Always follow your healthcare professional's instructions. Consider Using Patient Online Services Patient Online Services is a secure online and Mobile application that lets you: ?? View lab and test results ?? View portions of your medical record including clinical notes, immunizations and discharge summaries ?? Request an appointment or medication refill ?? Review your appointment schedule ?? Send secure messages to your care team Its easy to create an account if you dont have one. Go to [email or web address] and click on Create Your Account. Then, follow the directions to complete the online form. Youll be asked for your [facility] number which you can find at the top of this document. ED Tests and Procedures: Order Status Automated Diff-5 Part Completed CBC (includes Auto Differential) Completed Comprehensive Metabolic Panel Completed Lipase Level Completed Discharge Prescriptions & Home Medications: Medication/Strength Dose Route Frequency Indications/Special Instructions/Comments/Notes *albuterol (albuterol CFC free 90 mcg/inh inhalation aerosol) 2 puff(s) Inhalation as directed as needed for Shortness of breath / Wheezing 15 to 30min before exercise * You have let us know that you are not taking this medication as listed. Please talk with your primary care provider or the health care provider who prescribed the medication as soon as possible. Comment: Attention: If you have any medications at home not on this list, DO NOT take them until you contact your provider for clarification. Give a copy of your medication list to your primary care provider. Update your medication list any time medications or doses are changed and carry your medication list at all times in case of emergency. IMPORTANT: We examined and treated you today on an emergency basis only. This was not a substitute for, or an effort to provide, complete medical care. In most cases, you must let your doctor check youagain. Tell your doctor about any new or lasting problems. We cannot recognize and treat all injuries or illnesses in one Emergency Department visit. If you had special tests, such as EKG's or X- rays, we will review them again within 24 hours. We will call you if there are any new suggestions. Please follow the instructions above carefully. If you are being transferred to another facility your followup plan of care will be determined by the receiving facility. If you are a patient that is being discharged from the Emergency Department after receiving narcotics or other medications that may impair your judgment you may be a risk to yourself or others if you operate a motor vehicle. We recommend that you arrange a ride home with a responsible green party. SOREN Allred KIERSTEN ANN , or responsible green party have received this information and my questions havebeen answered. I have discussed any challenges I see with this plan with the nurse or physician. Patient Signature or Responsible Republican/Relationship Date Time Provider Signature Date Time IMPORTANT: We examined and treated you today on an emergency basis only. This was not a substitute for, or an effort to provide, complete medical care. In most cases, you must let your doctor check youagain. Tell your doctor about any new or lasting problems. We cannot recognize and treat all injuries or illnesses in one Emergency Department visit. If you had special tests, such as EKG's or X- rays, we will review them again within 24 hours. We will call you if there are any new suggestions. Please follow the instructions above carefully. If you are being transferred to another facility your followup plan of care will be determined by the receiving facility. If you are a patient that is being discharged from the Emergency Department after receiving narcotics or other medications that may impair your judgment you may be a risk to yourself or others if you operate a motor vehicle. We recommend that you arrange a ride home with a responsible green party. I, CARLY DOTY , or responsible green party have received this information and my questions havebeen answered. I have discussed any challenges I see with this plan with the nurse or physician. Patient Signature or Responsible Republican/Relationship Date Time Provider Signature Date Time This document has images extracted. Please consider using Zoom for all your patient education needs. Source: [facility] POWERCHART Document Id: [id number] EMIOLOGY INTERN Raul Duenas R.N. - 02/02/2015 8:19 PM CST ED Depart Summary [facility] Emergency Department Clinical Discharge Summary PERSON INFORMATION Name CARLY DOTY Age 44 Years 1970 12:00 AM Sex Female Language Unknown PCP ALDEN SARGENT III, MD Marital Status Visit Id Visit Reason Back pain; pancreatitis per patient Specialty Enc Type Emergency Med Service Emergency Medicine Referred by Track Group [facility] ED Discharge 02/02/2015 8:15 PM Tracking Id [id number] Checkout 02/02/2015 8:15 PM Checkin 02/02/2015 6:53 PM Acuity 4 -Less Urgent Dispo Type * Discharged to Home or Self Care Arrival 02/02/2015 6:53 PM Reg Status Complete LOS 000 01:22 Address: [address] [place] [address] [phone] Comment: PROVIDER INFORMATION Provider Role Provider Contact Time RAUL DUENAS ED Nurse 02/02/15 18:54 SUSAN CARTWRIGHT MD ED Provider 02/02/15 19:08 DIAGNOSIS Pain Back NOS Comment: PATIENT EDUCATION INFORMATION Instructions: BACK AND NECK PAIN, General Follow up: With: Address: When: ALDEN SARGENT [address] [place] [address] [place], [place] [id number] [facility] (2) Within AsNeeded Comments: If worsening or not getting better tomorrow. Source: [employer] Document Id: [id number] EMIOLOGY INTERN documented in this encounter ED Notes Raul Duenas R.N. - 02/02/2015 8:13 PM CST ED Disposition Summary ED Disposition Summary Entered On: 02/02/2015 20:13 EPIDEMIOLOGY INTERN Performed On: 02/02/2015 20:13 EPIDEMIOLOGY INTERN by RAUL DUENAS ED Disposition Summary Accompanied By : Alone Mode of Discharge : Ambulatory Transportation : Private vehicle Printed Discharge Instructions Given to Patient : Yes Patient Status at Discharge from ED : Improved RAUL DUENAS - 02/02/2015 20:13 EPIDEMIOLOGY INTERN Source: [employer] Document Id: [id number] EPIDEMIOLOGY INTERN!7 EMIOLOGY INTERN Raul Duenas R.N. - 02/02/2015 8:13 PM CST ED Pain Assessment ED Pain Assessment Entered On: 02/02/2015 20:13 EPIDEMIOLOGY INTERN Performed On: 02/02/2015 20:13 EPIDEMIOLOGY INTERN by RAUL DUENAS Pain Assessment Pain Symptoms : Yes RAUL DUENAS - 02/02/2015 20:13 EPIDEMIOLOGY INTERN Source: [facility] POWERCHART Document Id: [id number] EPIDEMIOLOGY INTERN!3 EMIOLOGY INTERN Susan Cartwright M.D. - 02/02/2015 7:08 PM CST Back Pain *ED Patient: CARLY DOTY Age: 44 years Sex: Female : 1970 Author: SUSAN CARTWRIGHT MD Attachments: None Associated Diagnosis: Pain Back NOS Basic Information Additional information: Chief Complaint from Nursing Triage Note : Chief Complaint Description 02/02/2015 19:04 EPIDEMIOLOGY INTERN Chief Complaint Description see triage assessment 02/02/2015 18:57 EPIDEMIOLOGY INTERN Chief Complaint Description Patient comes to the ED with complaints of middle back pain that started this morning and has gradually gotten worse. She states this pain is a sharpingpain rated 5/10. She also states that this is a pancreatits flair up. . History of Present Illness 44 yo f w/ h/o regular alcohol use and smoking who presents with some burning along her bra strap that she is concerned could be early pancreatitis. Ms. Doty states that this started this morning when she woke up and was mild and then started getting worse around 4 pm. She was able to eat dinner about 45 minutes ago but was concerned because her physician had told her after a bout of pancreatitis about 3 years ago that if she feels this she should come directly to the emergency department for IV hydration. Pain described as burning, 4/10, similar in character (but less severity) than her previouspancreatitis. Not associated with nausea or vomiting. No cough, chest pain, sob, pleuritic pain, newleg swelling, recent travel, h/o blood clot, h/o heart disease, bloody stool, or recent trauma. Not worse with movement. No h/o GERD. No past surgical history except C-sections x 3. No h/o gallstones or cholecystitis. No h/o kidney stones. She did have a night of heavy drinking about a week ago. Review of Systems Constitutional symptoms: No fever. Skin symptoms: No rash. Eye symptoms: No recent vision problems. ENMT symptoms: No nasal congestion. Respiratory symptoms: No shortness of breath. Cardiovascular symptoms: No chest pain. Gastrointestinal symptoms: No vomiting. Genitourinary symptoms: No dysuria. Musculoskeletal symptoms: Back pain. Neurologic symptoms: No numbness or no weakness. Hematologic/Lymphatic symptoms: Bruising tendency negative. Health Status Allergies: Allergic Reactions (Selected) Severity Not Documented Morphine- No reactions were documented. Nonallergic Reactions (Selected) Severity Not Documented Meperidine- Itching.. 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 Resolved.. Surgical history: Pap smear ([id number]) on 03/10/2008 at 37 Years. H/O: section ([id number]). Comments: 04/03/2011 03:14 - KODY MCCORMICK RN x3. Family history: No family history items have been selected or recorded.. Physical Examination Vital Signs: Vital Signs 02/02/2015 18:57 EPIDEMIOLOGY INTERN Temperature Core 37.3 DegC Peripheral Pulse Rate 104 /min HI SpO2 97 % Systolic Blood Pressure 131 mmHg Diastolic Blood Pressure 89 mmHg Mean Arterial Pressure 103 mmHg BP Location Left upper , per nurse's notes, Measurements 02/02/2015 18:57 EPIDEMIOLOGY INTERN Height 152 cm Height Source Stated Dosing Weight 57.00 kg NA Estimated Weight 57 kg , SpO2 02/02/2015 18:57 EPIDEMIOLOGY INTERN SpO2 97 % . General: Alert and no acute distress. Skin: Warm and dry. Head: Atraumatic. Eye: Pupils are equal, round and reactive to light, extraocular movements are intact and normal conjunctiva. Ears, nose, mouth and throat: Oral mucosa moist. Cardiovascular: Regular rate and rhythm and Normal peripheral perfusion. Respiratory: Lungs are clear to auscultation and respirations are non-labored. Chest wall: No tenderness. Back: Costovertebral angle tenderness: None and Thoracic: midline negative. Gastrointestinal: Soft, Nontender, Non distended and Cruz sign negative. Neurological: No focal neurological deficit observed, Level of consciousness: Appropriate for age, Cranial nerves II - XII: Intact and Speech: Normal. Psychiatric: Cooperative and appropriate mood & affect. Medical Decision Making Differential Diagnosis:Back pain, lumbar strain. Rationale:Presentation concerning for pancreatitis versus cholecystitis/cholelithiasis versus lumbarstrain versus GERD versus less likely ACS (44 yo, no chest pain, no sob, atypical but patient is a smoker), PE (non- smoker, no SOB, no chest pain, no leg swelling, no h/o clotting, not hypoxic), AAA (44 yo therefore unlikely). I suggested that we do a work up for blood clot, ACS (ECG), gallstones, andCXR in addition to lipase but the patient did not want this. She stated that the only reason she came in was because of concern of pancreatitis. She was quite insistent about this and despite my explaining that this could be a worrisome cause of pain including a heart attack or a clot in her lungs shedeclined pursuing any further testing for these etiologies. Her reasoning was that she was not worried about these and only came in because this felt somewhat like her pancreatitis she has had in the past. At this time we will only do blood work given she has expressed understanding of the potential risk and refused further testing. If all negative, will inform patient that we have no ruled out SC, PE, AAA, gallstones, as a cause of her pain and that she needs to return for worsening, vomiting, chest pain, sob, hemoptysis, or any other concerning symptoms. Will try to tx symptoms with famotidine. . Reexamination/ Reevaluation 20:13 Patient still feeling 3-4/10 burning in her mid back, somewhat better. Labs w/o evidence of pancreatitis or infectious etiology (cholecystitis). Again repeated that we have no ruled out some other potential dangerous causes of this and that it could also be very early pancreatitis. Reiterated signs/symptoms for return. Patient will go home with her daughters and f/u as described above if neededor w/ PCP if symptoms remain tomorrow. Impression and Plan Diagnosis Pain Back NOS (Discharge, Emergency medicine, Medical) Plan Condition: Stable. Disposition: Discharged: Time 02/02/2015 20:14:00, to home. Counseled: Patient, Regarding diagnosis, Regarding diagnostic results, Patient indicated understanding of instructions. Electronically Signed By: SUSAN CARTWRIGHT MD On: 02/02/2015 08:15 PM Modified by and Electronically Signed by: SUSAN CARTWRIGHT MD On: 02/02/2015 08:15 PM Source: [facility] [employer] Document Id: [id number] EMIOLOGY INTERN Raul Duenas R.N. - 02/02/2015 7:04 PM CST ED Primary Assessment Document Has Been Updated ED Primary Assessment Entered On: 02/02/2015 19:05 EPIDEMIOLOGY INTERN Performed On: 02/02/2015 19:04 EPIDEMIOLOGY INTERN by RAUL DUENAS Reason For Visit (As Of: 02/02/2015 19:05:55 EPIDEMIOLOGY INTERN) Problems(Active) Menstrual disorder, NOS (ICD-9-CM :626.9 ) Name of Problem: Menstrual disorder, NOS ; Recorder: KODY SANCHEZ RN; Confirmation: Confirmed ; Classification: Medical ; Code: 626.9 ; Contributor System: [employer] ; Last Updated: 12/02/2011 16:28 CDT ; Life Cycle Date: 04/03/2011 ; Life Cycle Status: Active ; Responsible Provider: KODY SANCHEZ RN; Vocabulary: ICD-9-CM ; Comments: 12/02/2011 15:59 - PIPE BOUCHER LPN date of onset unknown Diagnoses(Active) Back pain Date: 02/02/2015 ; Diagnosis Type: Reason For Visit ; Confirmation: Complaint of ; Clinical Dx: Back pain ; Classification: Medical ; Clinical Service: Emergency medicine ; Code: PNED ; Probability: 0 ; Diagnosis Code: [id number] Triage Chief Complaint Description : see triage assessment Mode of Arrival ED : Private vehicle, Carried Track : Medical Languages : Kosovan Treatments Prior to Arrival : None Are you ? : No Is Patient Female and 13-50 no hysterectomy : Yes Status : Patient denies RAUL DUENAS - 02/02/2015 19:04 EPIDEMIOLOGY INTERN Pain Assessment Pain Symptoms : Yes RAUL DUENAS - 02/02/2015 19:04 EPIDEMIOLOGY INTERN Respiratory Airway : Patent Respirations : Unlabored Respiratory Pattern : Regular RAUL DUENAS - 02/02/2015 19:04 EPIDEMIOLOGY INTERN Cardiovascular Heart Rhythm : Regular Skin Color : Normal for ethnicity Skin Description : Dry Skin Temperature : Warm BRUNA DUENASI 02/02/2015 19:04 EPIDEMIOLOGY INTERN Neurological Last Well Time Known : Not applicable Level of Consciousness : Alert Orientation : Oriented x 3 Characteristics of Speech : Appropriate for age BRUNA DUENASI 02/02/2015 19:04 EPIDEMIOLOGY INTERN ED Psychosocial Affect/Behavior : Calm, Cooperative Domestic Abuse Concerns : None Behavioral Health Screen/Safety Assmt : No BRUNA DUENASI 02/02/2015 19:04 EPIDEMIOLOGY INTERN Gastrointestinal Nutrition ED : Adequate BRUNA DUENASI 02/02/2015 19:04 EPIDEMIOLOGY INTERN Musculoskeletal Fall Prevention Education Provided : NA KIRSTIESOTEROBRUNAI 02/02/2015 19:04 EPIDEMIOLOGY INTERN Social Habits Tobacco Use/Currently Using : Yes Exposure to Tobacco Smoke : Patient smokes Smoking Status : Current every day smoker BRUNA DUENASI 02/02/2015 19:04 EPIDEMIOLOGY INTERN Tobacco Use Grid Type : Cigarettes Cigarette Use Packs/Day : 1.0 RAUL DUENAS 02/02/2015 19:04 EPIDEMIOLOGY INTERN Alcohol Use Grid Alcohol Use : Yes Frequency : Occasionally Last Use : today 3/4 glass of wine BRUNA DUENASI 02/02/2015 19:04 EPIDEMIOLOGY INTERN Recreational Drug Use Grid Drug Use : None KIRSTIERAUL BEY 02/02/2015 19:04 EPIDEMIOLOGY INTERN Source: [facility] [employer] Document Id: [id number] EPIDEMIOLOGY INTERN!50 EMIOLOGY INTERN Raul Duenas RRenardNRenard - 02/02/2015 6:57 PM CST ED Triage Assessment Document Has Been Updated ED Triage Assessment Entered On: 02/02/2015 19:03 EPIDEMIOLOGY INTERN Performed On: 02/02/2015 18:57 EPIDEMIOLOGY INTERN by RAUL DUENAS Reason For Visit (As Of: 02/02/2015 19:08:10 EPIDEMIOLOGY INTERN) Problems(Active) Menstrual disorder, NOS (ICD-9-CM :626.9 ) Name of Problem: Menstrual disorder, NOS ; Recorder: KODY SANCHEZ RN; Confirmation: Confirmed ; Classification: Medical ; Code: 626.9 ; Contributor System: [employer] ; Last Updated: 12/02/2011 16:28 CDT ; Life Cycle Date: 04/03/2011 ; Life Cycle Status: Active ; Responsible Provider: KODY SANCHEZ RN; Vocabulary: ICD-9-CM ; Comments: 12/02/2011 15:59 - SANDER PIPE Deleon LPN date of onset unknown Diagnoses(Active) Back pain Date: 02/02/2015 ; Diagnosis Type: Reason For Visit ; Confirmation: Complaint of ; Clinical Dx: Back pain ; Classification: Medical ; Clinical Service: Emergency medicine ; Code: PNED ; Probability: 0 ; Diagnosis Code: [id number] Triage Vital Signs Assessed : Yes RAUL DUENAS 02/02/2015 19:06 EPIDEMIOLOGY INTERN Chief Complaint Description : Patient comes to the ED with complaints of middle back pain that started this morning and has gradually gotten worse. She states this pain is a sharping pain rated 5/10. She also states that this is a pancreatits flair up. Information Given By : Patient Accompanied By : Alone Mode of Arrival ED : Private vehicle, Carried Track : Medical Languages : Kosovan Treatments Prior to Arrival : None Are you ? : No Is Patient Female and 13-50 no hysterectomy : Yes Status : Patient denies RAUL DUENAS 02/02/2015 18:57 EPIDEMIOLOGY INTERN Vital Signs Temperature Core : 37.3 DegC(Converted to: 99.1 DegF) Peripheral Pulse Rate : 104 /min (HI) Systolic Blood Pressure : 131 mmHg Diastolic Blood Pressure : 89 mmHg NIBP Mean : 103 mmHg BP Location : Left upper extremity SpO2 : 97 % Oxygen Therapy : Room air Height : 152 cm(Converted to: 5 ft 0 inch(es)) Height Source : Stated Estimated Weight : 57 kg Estimated Weight Conversion to Pounds : 125.4 lb RAUL DUENAS 02/02/2015 19:06 EPIDEMIOLOGY INTERN Pain Assessment Pain Symptoms : Yes RAUL DUENAS 02/02/2015 18:57 EPIDEMIOLOGY INTERN Pain Scale Pain Scale Verbal 0-10 : Open RAUL DUENAS 02/02/2015 18:57 EPIDEMIOLOGY INTERN Pain Pain Assessment Grid Pain 1 Location : Other: middle back Intensity : 5 Time Pattern : Acute Onset : Gradual Quality : Sharp RAUL DUENAS 02/02/2015 18:57 EPIDEMIOLOGY INTERN ED Physician Notification Time ED Physician Notification Time : 02/02/2015 18:59 EPIDEMIOLOGY INTERN RAUL DUENAS - 02/02/2015 18:57 EPIDEMIOLOGY INTERN STEPHANI DCP GENERIC CODE Tracking Group : [facility] ED Tracking Acuity : 4 -Less Urgent RAUL DUENAS - 02/02/2015 18:57 EPIDEMIOLOGY INTERN Allergy (As Of: 02/02/2015 19:03:47 EPIDEMIOLOGY INTERN) Allergies (Active) meperidine Reactions: Itching ; Comments: Comment 1: CHELEEROL ; Created By: Contributor_system, [id number]; Reaction Status: Active ; Category: Drug ; Substance: meperidine ; Type: Unknown morphine Estimated Onset Date: Unspecified ; Created By: KODY SANCHEZ RN; Reaction Status: Active ; Category: Drug ; Substance: morphine ; Type: Allergy ; Updated By: KODY SANCHEZ RN;Reviewed Date: 12/02/2011 15:59 CDT Immunizations Immunizations Current : Yes Influenza : None BRUNA DUENASI - 02/02/2015 18:57 EPIDEMIOLOGY INTERN Source: [facility] [employer] Document Id: [id number] EPIDEMIOLOGY INTERN!16 EMIOLOGY INTERN documented in this encounter Miscellaneous Notes Miscellaneous - Conversion, Historical Provider Ser - 02/02/2015 8:15 PM EPIDEMIOLOGY INTERN Coding Summary-Paper Based CODING DATE: 02/13/2015 FINAL [facility] STATUS: * Discharged to Home or Self Care PAYOR: Self Pay ADMIT DX: M54.9 Dorsalgia, unspecified REASON FOR VISIT DX: M54.9 Dorsalgia, unspecified FINAL DX: PRINCIPAL: M54.9 Dorsalgia, unspecified SECONDARY: F17.210 Nicotine dependence, cigarettes, uncomplicated Z88.5 Allergy status to narcotic agent status Z88.8 Allergy status to other drugs, medicaments and biological substances status PROCEDURES DOCTOR NAME DATE NOTE: The code number assigned matches the documented diagnosis and / or procedure in the patient's chart. However, the narrative phrase printed from the coding software may appear abbreviated, or result in slightly different terminology. Coded By: VELMA KIMBLE Date Saved: 02/13/2015 01:32 pm Source: [facility] [employer]ar[employer]rossCHART Document Id: [id number] Miscellaneous - Raul Duenas, RRenardN. - 02/02/2015 8:14 PM CST Facility Charge Ticket 2.0 11.0 DX Facility Charge Ticket 2.0 11.0 DX Entered On: 02/02/2015 20:14 EPIDEMIOLOGY INTERN Performed On: 02/02/2015 20:14 EPIDEMIOLOGY INTERN by RAUL DUENAS Facility Charge Ticket 2.0 11.0 DX ED Other Charges : Standard ED Encounter TVL Level Translated RTF : Back pain TVL:3 TVL Level for Facility Charge Ticket : Level 3 Arrival Mode Calc : 1 Mode of Arrival ED : Private vehicle, Carried [place] Mode of Arrival Interpreted : Standard [facility] Process Management : None Order Management RTF : Laboratory CBC (includes Auto Differential),02/02/15 19:19,SUSAN CARTWRIGHT MD Completed Comprehensive Metabolic Panel,02/02/15 19:19,SUSAN CARTWRIGHT MD Completed Lipase Level,02/02/15 19:20,SUSAN CARTWRIGHT MD Completed Automated Diff-5 Part,02/02/15 19:40,SUSAN CARTWRIGHT MD Completed [place] Order Management : Lab tests 30 Minutes Critical Care : No Nursing Notes RTF : Triage Forms ED Triage Assessment,02/02/15 18:57,RAUL DUENAS ED Triage Assessment,02/02/15 18:57,RAUL DUENAS Nursing Notes ED Primary Assessment,02/02/15 19:04,RAUL DUENAS ED Pain Assessment,02/02/15 20:13,RAUL DUENAS [place]a Nursing Assessment : Triage and 1-2 nursing assessments [facility] Disposition : Discharge [place] Total Points with Diagnosis Control : 6 [place]x Visit Level : 78939 Level 3 Treatments Prior to Arrival : None RAUL DUENAS - 02/02/2015 20:14 EPIDEMIOLOGY INTERN [facility] Document Id: [id number] EPIDEMIOLOGY INTERN!18 EMIOLOGY INTERN Miscellaneous - Raul Duenas R.N. - 02/02/2015 8:13 PM CST Valuables/Belongings Valuables/Belongings Entered On: 02/02/2015 20:14 EPIDEMIOLOGY INTERN Performed On: 02/02/2015 20:13 EPIDEMIOLOGY INTERN by RAUL DUENAS Valuables/Belongings Home Medication Disposition : None brought in with patient RUAL DUENAS - 02/02/2015 20:13 EPIDEMIOLOGY INTERN Source: [facility] POWERCHART Document Id: [id number] EPIDEMIOLOGY INTERN!3 EMIOLOGY INTERN documented in this encounter Plan of Treatment Not on filedocumented as of this encounter Procedures Procedure Name Priority Date/Time Associated Comments Diagnosis AUTOMATED Routine 02/02/2015 7:38 PM Results f or this DIFFERENTIAL, B EPIDEMIOLOGY INTERN procedure ar e in the results section. CBC WITH DIFFERENTIAL, Routine 02/02/2015 7:38 PM Results for this B EPIDEMIOLOGY INTERN procedure are i n the results section. LIPASE, S/P Routine 02/02/2015 7:38 PM Results f or this EPIDEMIOLOGY INTERN procedure are i n the results section. COMPREHENSIVE Routine 02/02/2015 7:38 PM Results for this METABOLIC PANEL, S/P EPIDEMIOLOGY INTERN procedu re are in the results section. documented in this encounter Results Automated Differential (02/02/2015 7:38 PM EPIDEMIOLOGY INTERN) P athologist Signature Absolute 4.71 1.70 - POWERCHART Neutrophils 7.00 109L Lymphocytes 1.49 0.90 - POWERCHART 2.90 X109L Monocytes 0.52 0.30 - POWERCHART 0.90 X109L Eosinophils 0.12 0.05 - POWERCHART 0.50 X109L Absolute 0.02 0.00 - POWERCHART Basophil 0.30 X109L Specimen Anatomical Collection Method Collection Time Receive d Time (Source) Location / / Volume Laterality Blood 02/02/2015 7:38 PM 5 7:38 EPIDEMIOLOGY INTERN PM EPIDEMIOLOGY INTERN Susan Cartwright M.D. LAB BLOOD ADD-ON Performing Organization Address City/State/ZIP Code Phon e Number POWERCHART (ABNORMAL) CBC with Differential (02/02/2015 7:38 PM EPIDEMIOLOGY INTERN) [facility] gist Method Time Signature Leukocytes 6.9 3.4 - 10.5 POWERCHART X109L Erythrocytes 3.33 (L) 3.90 - POWERCHART 5.03 [id number] Hemoglobin 12.2 12.0 - POWERCHART 15.5 GDL Hematocrit 36.2 34.9 - POWERCHART 44.5 MCV 108.7 (H) 82.0 - POWERCHART 98.0 FL HX RDW 10.7 (L) 11.9 - POWERCHART 15.5 Platelet Count 157 150 - 450 POWERCHART X109L Specimen (Source) Anatomical Collection Method Collection Time Re ceived Time Location / / Volume Laterality Blood 02/02/2015 7:38 PM EPIDEMIOLOGY INTERN Susan Cartwright M.D. LAB BLOOD ADD-ON Performing Organization Address City/State/ZIP Code Phon e Number POWERCHART Lipase (02/02/2015 7:38 PM EPIDEMIOLOGY INTERN) athologist Signature Lipase, S 44.3 10.0 - 73.0 POWERCHART UL Specimen (Source) Anatomical Collection Method Collection Time Re ceived Time Location / / Volume Laterality Blood 02/02/2015 7:38 PM EPIDEMIOLOGY INTERN Susan Cartwright M.D. LAB BLOOD ADD-ON Performing Organization Address City/State/ZIP Code Phon e Number POWERCHART (ABNORMAL) CMP (Comprehensive Metabolic Panel) (02/02/2015 7:38 PM EPIDEMIOLOGY INTERN) [facility] gist Method Time Signature Alanine 25 7 - 45 POWERCHART Amniotransferase, LD UNITL Albumin, S 4.5 3.5 - 5.0 POWERCHART GDL Alkaline 53 37 - 98 POWERCHART Phosphatase, S UL Aspartate 35 8 - 43 POWERCHART Aminotransferase UNITL (AST), S Sodium, S 136.9 135.0 - POWERCHART 145.0 MML Potassium, S 3.4 (L) 3.6 - 4.8 POWERCHART MMOLL Chloride, S 100 98 - 107 POWERCHART MMOLL CO2 Total 25.6 23.0 - POWERCHART 29.0 MMOLL BUN (Blood Urea 6 (L) 7 - 18 POWERCHART Nitrogen), S MGDL Creatinine 0.62 0.60 - POWERCHART 1.30 MGDL Calcium, Total, S 9.4 8.6 - POWERCHART 10.0 MGDL Anion Gap 15 10 - 20 POWERCHART MMOLL HXeGFR (MDRD) >60 >=60 POWERCHART [id number] 2 eGFR Black/ >60 >=60 POWERCHART [place] [id number] 2 Bilirubin, Total, S 0.3 0.1 - 1.0 POWERCHART MGDL Total Protein, S 7.3 6.3 - 7.9 POWERCHART GDL Glucose 147 (H) 70 - 139 POWERCHART MGDL Specimen (Source) Anatomical Collection Method Collection Time Re ceived Time Location / / Volume Laterality Blood 02/02/2015 7:38 PM EPIDEMIOLOGY INTERN Susan Cartwright M.D. LAB BLOOD ADD-ON Performing Organization Address City/State/ZIP Code Phon e Number POWERCHART documented in this encounter Visit Diagnoses Not on filedocumented in this encounter Additional Health Concerns Assessment Noted Time PHQ-9 Depression Total Score: 11 04/13/2012 12:[address] documented as of this encounter
--- OUTSIDE RECORDS SUMMARY | 2021-12-20 09:02 | XMS_ITS | Encounter Summary ---
:1970 Author Organization [facility] Address [address] [place] [id number] Care Team Providers Name Role Phone Unavailable Primary Care Provider Unavailable Encounter Details Date Type Department Care Team Description 09/23/2011 Hospital Encounter HX [facility] Jim Hampton, P.A.-C. [address] [place], [place] [phone] (Wo rk) Social History Tobacco Use Types Packs/Day Years Used Date Smoking Tobacco: Never Assessed Sex Assigned at Date Recorded Not on file documented as of this encounter Progress Notes Cathleen Hampton - 09/23/2011 10:00 AM CDT [id number] CLINIC ENCOUNTER SUBJECTIVE: Ms. Correa is a 41-year-old female who presents to the clinic today for approximately four-week history of right knee pain. She states that approximately four weeks ago she fell awkwardly in a pothole with what she describes as valgus force. Since that time she has improved slightly but continues to have mostly medial-sided knee pain. She states that her knee feels stable; however, she has a painful clicking and popping. She has had no locking-type feeling. She states that it hurts at the end of range of motion. It hurts when she walks throughout the day. She denies any numbness, tingling, fevers, chills. She does tell me today that after the injury she had a significant amount of swelling that she has treated conservatively. 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 OBJECTIVE: Alert, oriented times three. No acute distress. CMS intact. Sensation to light touch intact. Capillary refill less than 3 seconds. Palpable pedal pulse. She has good strength to dorsiflexion, plantar flexion, extension of the great toe. She is able to do a straight leg raise today. She has some tenderness to palpation about the pes anserine bursa and patellar tendon but she does state that this came after her medial-sided knee pain. She does have medial joint line tenderness that replicates her discomfort. She has no joint effusion today. Her range of motion is a couple degrees shy of full extension which is uncomfortable for her on the medial aspect of the knee with flexion of 125 which is also uncomfortable at the end range of motion. She has stable ligamentous exam today; however, she does guard throughout the exam. She is stable to valgus and varus stress testing; however, varus stress testing does cause some discomfort on the medial aspect of her knee. No laxity is felt. She has a Lindsay's with an endpoint. ASSESSMENT: Right knee injury, rule out internal derangement of the knee. PLAN: At her appointment today we do discuss treatment options. After this discussion, we are going to proceed with MRI which I am most concerned about meniscal injury from her exam and history today. We did discuss followup thereafter for MRI results and discussion about treatment plan thereafter. In the meantime, she is to avoid aggravating activities and do other conservative measures. All the patient's questions and concerns were answered today. She was encouraged to call with any and patient was reviewed with Dr. Granados. JANI Mejia// cc: Source: [facility] [email or web address] Document Id: [id number] Electronically signed by Maria L [facility] Simulation Developer [id number] at 08/10/2016 4:17 PM CDT documented in this encounter Plan of Treatment Not on filedocumented as of this encounter Visit Diagnoses Not on filedocumented in this encounter
--- OUTSIDE RECORDS SUMMARY | 2021-12-20 09:02 | XMS_ITS | Encounter Summary ---
:1970 Author Organization [facility] Address [address] [place] [id number] Care Team Providers Name Role Phone Unavailable Primary Care Provider Unavailable Encounter Details Date Type Department Care Team Description 04/03/2011 Hospital Encounter HX [facility] ED Krzysztof Hammonds M.D. Social History Tobacco Use Types Packs/Day Years Used Date Smoking Tobacco: Never Assessed Sex Assigned at Date Recorded Not on file documented as of this encounter Last Filed Vital Signs Vital Sign Reading Time Taken Comments Blood Pressure 105/71 04/03/2011 4:35 AM [facility] [employer] Pulse - - Temperature - - Respiratory Rate 20 04/03/2011 4:23 AM [employer] Oxygen Saturation - - Inhaled Oxygen Concentration - - Weight - - Height - - Body Mass Index - - documented in this encounter Discharge Summaries Davi Manley RRenardN. - 04/03/2011 4:48 AM CST ED Discharge Instructions [address] [address] Name: CARLY DOTY Date of : 1970 12:00 AM Visit Date: 04/03/2011 2:52 AM Address: [address] [place] [phone] Primary Care Provider: PCP, MARTINE IMPORTANT:[facility] in [place] would like to thank you for allowing us to assist you with your healthcare needs. The following includes patient education materials and information regarding your injury/illness. Chief Complaint: Shortness of Breath; Chest Pain:Pleuritic; Hard time breathing, chest pain Follow-Up Instructions: With: Address: When: Return to Emergency Department Within As Needed Comments: If symptoms worsen With: Address: When: ELSEWHERE PCP Within 3 - 5 days Comments: Patient Education Materials: [id number] PNEUMONIA [Adult] PNEUMONIA is an infection deep within the lung, in the small air sacs (alveoli). It may be due to a virus or bacteria and is usually treated with an antibiotic. Severe cases require treatment in the hospital. Milder cases can be treated at home. Symptoms usually start to improve during the first twodays of treatment. HOME CARE: 1) Rest at home for the first 2-3 days or until you feel stronger. When resuming activity, don't letyourself become overly tired. 2) Avoid exposure to cigarette smoke (yours or others). 3) You may use acetaminophen (Tylenol) or ibuprofen (Motrin, Advil) to control fever or pain, unlessanother medicine was prescribed. [ NOTE : If you have chronic liver or kidney disease or ever had a stomach ulcer or GI bleeding, talk with your doctor before using these medicines.] (Aspirin should never be used in anyone under 18 years of age who is ill with a fever. It may cause severe liver damage.) 4) Your appetite may be poor so a light diet is fine. 5) Keep well hydrated by drinking 6-8 glasses of fluids per day (water, sport drinks such as Gatorade, sodas without caffeine, juices, tea, soup, etc.). This will help loosen secretions in the lung, making it easier for you to cough up the phlegm (sputum). If you also have heart or kidney disease, check with your doctor before you drink extra amounts of fluids. 6) Finish all antibiotic medicine prescribed, even if you are feeling better after a few days. FOLLOW UP with your doctor in the next 2-3 days (or as advised) to be sure you are responding properly to the medicine. [NOTE : If you are age 65 or older, or if you have chronic lung disease (asthma, emphysema or COPD),we recommend a PNEUMOCOCCALVACCINATION every five years and a yearly INFLUENZA VACCINATION (flu-shot) every . Ask your doctor about this.] [NOTE: If you had an X-ray or EKG (cardiogram), it will be reviewed by a specialist. You will be notified of any new findings that may affect your care.] GET PROMPT MEDICAL ATTENTION if any of the following occur: -- Not getting better within the first 48 hours of treatment -- Increasing shortness of breath or rapid breathing (over 25 breaths/minute) -- Coughing up blood or increasing chest pain with breathing -- Fever over 101.5??F (38.0??C) for more than two days -- Increasing weakness, dizziness or fainting -- Increasing thirst or dry mouth -- Sinus pain, headache or a stiff neck -- Chest pain not caused by coughing ?? 4586-9950 [employer], [address] [place] [address]. All rights reserved. This information is not intended as a substitute for professional medical care. Always follow your healthcare professional's instructions. [id number] PNEUMONIA [Adult] PNEUMONIA is an infection deep within the lung, in the small air sacs (alveoli). It may be due to a virus or bacteria and is usually treated with an antibiotic. Severe cases require treatment in the hospital. Milder cases can be treated at home. Symptoms usually start to improve during the first twodays of treatment. HOME CARE: 1) Rest at home for the first 2-3 days or until you feel stronger. When resuming activity, don't letyourself become overly tired. 2) Avoid exposure to cigarette smoke (yours or others). 3) You may use acetaminophen (Tylenol) or ibuprofen (Motrin, Advil) to control fever or pain, unlessanother medicine was prescribed. [ NOTE : If you have chronic liver or kidney disease or ever had a stomach ulcer or GI bleeding, talk with your doctor before using these medicines.] (Aspirin should never be used in anyone under 18 years of age who is ill with a fever. It may cause severe liver damage.) 4) Your appetite may be poor so a light diet is fine. 5) Keep well hydrated by drinking 6-8 glasses of fluids per day (water, sport drinks such as Gatorade, sodas without caffeine, juices, tea, soup, etc.). This will help loosen secretions in the lung, making it easier for you to cough up the phlegm (sputum). If you also have heart or kidney disease, check with your doctor before you drink extra amounts of fluids. 6) Finish all antibiotic medicine prescribed, even if you are feeling better after a few days. FOLLOW UP with your doctor in the next 2-3 days (or as advised) to be sure you are responding properly to the medicine. [NOTE : If you are age 65 or older, or if you have chronic lung disease (asthma, emphysema or COPD),we recommend a PNEUMOCOCCALVACCINATION every five years and a yearly INFLUENZA VACCINATION (flu-shot) every . Ask your doctor about this.] [NOTE: If you had an X-ray or EKG (cardiogram), it will be reviewed by a specialist. You will be notified of any new findings that may affect your care.] GET PROMPT MEDICAL ATTENTION if any of the following occur: -- Not getting better within the first 48 hours of treatment -- Increasing shortness of breath or rapid breathing (over 25 breaths/minute) -- Coughing up blood or increasing chest pain with breathing -- Fever over 101.5??F (38.0??C) for more than two days -- Increasing weakness, dizziness or fainting -- Increasing thirst or dry mouth -- Sinus pain, headache or a stiff neck -- Chest pain not caused by coughing ?? 9539-7172 [employer], [address] [place], [place] [address]. All rights reserved. This information is not intended as a substitute for professional medical care. Always follow your healthcare professional's instructions. [id number] HOW TO QUIT SMOKING Smoking is one of the hardest habits to break. About half of all those who have ever smoked have been able to quit, and most of those (about 70%) who still smoke want to quit. Here are some of the bestways to stop smoking. KEEP TRYING: It takes most smokers about 8 tries before they are finally able to fully quit. So, the more often you try and fail, the better your chance of quitting the next time! So, don't give up! GO COLD TURKEY: Most ex-smokers quit cold turkey. Trying to cut back gradually doesn't seem to work as well, perhapsbecause it continues the smoking habit. Also, it is possible to fool yourself by inhaling more whilesmoking fewer cigarettes. This results in the same amount of nicotine in your body! GET SUPPORT: Support programs can make an important difference, especially for the heavy smoker. These groups offer lectures, methods to change your behavior and peer support. Call the free national Quitline for more information. 778-VUPE-IXB (581-484-4958). Low-cost or free programs are offered by many hospitals,local chapters of the [place] [employer] (745-289-9637) and the [place] [employer] (061-559-2257). Support at home is important too. Non-smokers can help by offering praise and encouragement. If the smoker fails to quit, encourage them to try again! [id number]-[id number] MEDICINES: For those who can't quit on their own, Nicotine Replacement Therapy (NRT) may make quitting much easier. Certain aids such as the nicotine patch, gum and lozenge are available without a prescription. However, it is best to use these under the guidance of your doctor. The skin patch provides a steady supply of nicotine to the body. Nicotine gum and lozenge gives temporary bursts of low levels of nicotine. Both methods take the edge off the craving for cigarettes. WARNING: If you feel symptoms of nicotine overdose, such as nausea, vomiting, dizziness, weakness, or fast heartbeat, stop using these andsee your doctor. PRESCRIPTION MEDICINES: After evaluating your smoking patterns and prior attempts at quitting, your doctor may offer a prescription medicine such as bupropion (Zyban, Wellbutrin), varenicline (Chantix, Champix), a niocotine inhaler or nasal spray. Each has its unique advantage and side effects which your doctor can review with you. HEALTH BENEFITS OF QUITTING: The benefits of quitting start right away and keep improving the longer you go without smoking: ?? 20 minutes: blood pressure and pulse return to normal ?? 8 hours: oxygen levels return to normal ?? 2 days: ability to smell and taste begins to improve as damaged nerves start to regrow ?? 2-3 weeks: circulation and lung function improves ?? 1-9 months: decreased cough, congestion and shortness of breath; less tired ?? 1 year: risk of heart attack decreases by half ?? 5 years: risk of lung cancer decreases by half; risk of stroke becomes the same as a non-smoker For information about how to quit smoking, visit the following links: ?? National [employer] [place] , Clearing the Air, Quit Smoking Today - an online booklet. http://www.smokefree.gov/pubs/clearing_the_air.pdf ?? Smokefree.gov http://smokefree.gov/ QuitNet http://www.quitnet.com/ ?? [employer], [address] [place] [address], [place] [address]. All rights reserved. This information is not intended as a substitute for professional medical care. Always follow your healthcare professional's instructions. [id number] MEDICATION: ALBUTEROL Oral Inhaler Albuterol (brand names: Ventolin and Proventil) dilates the bronchial passages of the lungs. This medicine may be used to TREAT or PREVENT wheezing (bronchospasm) in persons with asthma, emphysema or upper respiratory infections. It begins to work 5-15 minutes after use. Each dose lasts for 3-6 hours. DIRECTIONS FOR USE: The medicine in your inhaler must be breathed deeply into your lungs in order for it to work. If youhave not been shown how to use an inhaler, ask your doctor or pharmacist for directions. If you havetrouble getting the medicine into your lungs, ask your doctor for a spacer. A spacer is a small chamber that attaches to the inhaler. Do not use more puffs than directed or more often than prescribed. If the inhaler seems to lose its effect at the recommended dose, this may be a sign that your condition is worsening. Notify your doctor or return to this facility promptly. REMEMBER: bronchospasm and wheezing is easiest to treat in the early stages before it becomes severe! If you have been prescribed two or more puffs at a time, wait one minute between puffs and hold yourbreath for a few seconds after each inhalation to increase action of the drug. If you have also beenprescribed a steroid inhaler (Vanceril, Beclovent, Azmacort, Flonase), use the bronchodilator first to open the air passages. Wait five minutes, then use the steroid inhaler. Warm to room temperature by holding the inhaler in your hand or pocket before use. Shake well beforeeach use. WHAT TO WATCH FOR: POSSIBLE SIDE EFFECTS: Shakiness, anxiety, rapid or pounding heart beat, headache --> (Contact your doctor if symptoms persist or become severe). Worsening of your wheezing right after the treatment--> (Discontinue use. Contact your doctor promptly or return to this facility). IMPORTANT MEDICAL CONDITIONS: Before starting this medicine, be sure your doctor knows if you have any of the following conditions: -- or breast feeding -- Heart disease, high blood pressure, overactive thyroid, seizures, diabetes DRUG INTERACTIONS: Before starting this medicine, be sure your doctor knows if you are taking any ofthe following drugs: -- Other inhalers for bronchospasm -- MAO Inhibitor (Nardil, Parnate) -- Tricyclic anti-depressant (Elavil, Norpramin, Pamelor, Tofranil, Sinequan, Doxepin, etc.) -- Beta blockers (Inderal, Propranolol, Corgard, Tenormin, Atenolol, Labetalol, etc.) [NOTE: This information topic may not include all directions, precautions, medical conditions, drug/food interactions and warnings for this drug. Check with your doctor, nurse or pharmacist for any questions that you may have.] ?? 3113-0409 [employer], [address] [place] [address]. All rights reserved. This information is not intended as a substitute for professional medical care. Always follow your healthcare professional's instructions. [id number] MEDICATION: ZITHROMAX You have been Zithromax (generic: azithromycin). This is an antibiotic similar to Erythromycin, but is less likely to cause stomach upset. DIRECTIONS FOR USE: Zithromax works best when taken on an EMPTY STOMACH. Take it with a full glass of water either one hour BEFORE or two hours AFTER A MEAL. If you find that it causes nausea when taken on an empty stomach, then take it with food. Take all of the medicine until it is gone, even if you are feeling better. This will ensure that your infection is fully treated. WHAT TO WATCH FOR: POSSIBLE SIDE EFFECTS: Nausea, vomiting, stomach pain or diarrhea --> Take with food and contact your doctor if any of these symptoms persist or become severe. ALLERGIC REACTION: Rash, itching, swelling, trouble breathing or swallowing --> Contact your doctor or return to this facility promptly. IMPORTANT MEDICAL CONDITIONS: Before starting this medicine, be sure your doctor knows if you have any of the following conditions: -- Allergic reaction to Erythromycin or Biaxin (clarithromycin) -- Breast feeding DRUG INTERACTIONS: Before starting this medicine, be sure your doctor knows if you are taking any ofthe following drugs: -- Propulsid (cisapride), Lanoxin (digoxin), phenothiazines (such as chlorpromazine, promethazine), Coumadin (warfarin), Ranexa (ranolazine) [NOTE: This information topic may not include all directions, precautions, medical conditions, drug/food interactions and warnings for this drug. Check with your doctor, nurse or pharmacist for any questions that you may have.] ?? [id number] [employer], [address] [place] [address], [place] [address]. All rights reserved. This information is not intended as a substitute for professional medical care. Always follow your healthcare professional's instructions. ED Tests and Procedures: Order Status XR Chest 2 Views Completed Oxygen - ER Completed Discharge Prescriptions & Home Medications: Medication/Strength Dose Route Frequency Indications/Special Instructions/Comments azithromycin (Azithromycin 5 Day Dose Pack 250 mg oral tablet) 2 tablets on day 1, then 1 tablet on days 2-5 Oral as directed for 5 Days albuterol (albuterol CFC free 90 mcg/inh inhalation aerosol) 2 puff(s) Inhalation as directed as needed for Shortness of breath / Wheezing 15 to 30min before exercise Attention: If you have any medications at home not on this list, DO NOT take them until you contact your provider for clarification. Medication Reconciliation: Reconciliation is a process of identifying the most accurate list of all medications a patient is taking - including name, dosage, frequency, and route - and using this list to provide to the patient information about how to take those medications. CARLY DOTY or lauren has reviewed the home medications you have listed with us. Review the following instructions: You have NOT received any prescriptions and you have told us you are not currently taking any home medications You have NOT received any prescriptions. You have been provided a discharge medications list and you may CONTINUE taking your medications as previously prescribed by your regular providers. You have received the listed prescriptions and BEGIN all listed prescriptions as directed. Since you have listed no home medications, please check with your family doctor if you are taking any other medications. You have received the listed prescriptions and BEGIN all listed prescriptions as directed. Youhave been provided a discharge medications list and you may CONTINUE all home medications as previously prescribed by your regular providers. You have received the listed prescriptions and BEGIN all listed prescriptions as directed. Youhave been provided a discharge medications list. The following CHANGES have been made to your medication list; Otherwise, CONTINUE all home medications as previously prescribed by your regular provider. IMPORTANT: We examined and treated you today [...] arrange a ride home with a responsible republican. SOREN Allred KIERSTEN ANN , or responsible republican have received this information and my questions havebeen answered. I have discussed any challenges I see with this plan with the nurse or physician. Patient Signature or Responsible Constitution Party/Relationship Date/Time Provider Signature Date/Time Medication Reconciliation: Reconciliation is a process of identifying the most accurate list of all medications a patient is taking - including name, dosage, frequency, and route - and using this list to provide to the patient information about how to take those medications. CARLY DOTY or designee has reviewed the home medications you have listed with us. Review the following instructions: You have NOT received any prescriptions and you have told us you are not currently taking any home medications You have NOT received any prescriptions. You have been provided a discharge medications list and you may CONTINUE taking your medications as previously prescribed by your regular providers. You have received the listed prescriptions and BEGIN all listed prescriptions as directed. Since you have listed no home medications, please check with your family doctor if you are taking any other medications. You have received the listed prescriptions and BEGIN all listed prescriptions as directed. Youhave been provided a discharge medications list and you may CONTINUE all home medications as previously prescribed by your regular providers. You have received the listed prescriptions and BEGIN all listed prescriptions as directed. Youhave been provided a discharge medications list. The following CHANGES have been made to your medication list; Otherwise, CONTINUE all home medications as previously prescribed by your regular provider. IMPORTANT: We examined and treated you today [...] arrange a ride home with a responsible republican. ISOREN KIERSTEN ANN , or responsible republican have received this information and my questions havebeen answered. I have discussed any challenges I see with this plan with the nurse or physician. Patient Signature or Responsible Constitution Party/Relationship Date/Time Provider Signature Date/Time This document has images extracted. Please consider using [employer] for all your patient education needs. Source: [facility] [employer] Document Id: [id number] [employer] Davi Manley R.N. - 04/03/2011 4:48 AM CST ED Depart Summary [facility] Emergency Department Clinical Discharge Summary PERSON INFORMATION Name CARLY DOTY Age 41 Years 1970 12:00 AM Sex Female Language Divehi PCP PCP, ELSEWHERE Marital Status N [id number] Visit Id Visit Reason Shortness of Breath; Chest Pain:Pleuritic; Hard time breathing, chest pain Specialty Enc Type Emergency Med Service Emergency Medicine Referred by Track Group [facility] ED Discharge 04/03/2011 4:48 AM Tracking Id [id number] Checkout 04/03/2011 4:48 AM Checkin 04/03/2011 2:52 AM Acuity 3 -Urgent Dispo Type * Discharged to Home or Self Care Arrival 04/03/2011 2:52 AM Reg Status Complete LOS 000 01:56 Address: [address] [place] [phone] Comment: PROVIDER INFORMATION Provider Role Provider Contact Time DAVI MCCORMICK [employer] ENG[employer]ER Nurse 04/03/11 03:15 KRZYSZTOF HAMMONDS MD ED Provider 04/03/11 03:27 DIAGNOSIS Pneumonia Comment: PATIENT EDUCATION INFORMATION Instructions: PNEUMONIA (Adult); PNEUMONIA (Adult); SMOKING CESSATION; ALBUTEROL Oral Inhaler; AZITHROMYCIN Follow up: With: Address: When: Return to Emergency Department Within As Needed Comments: If symptoms worsen With: Address: When: ELSEWHERE PCP Within 3 - 5 days Comments: Source: [facility] [employer] Document Id: [id number] [employer] documented in this encounter Nursing Notes Davi Manley R.N. - 04/03/2011 4:25 AM CST ED Pain Assessment ED Pain Assessment Entered On: 04/03/2011 4:26 VP [employer] Performed On: 04/03/2011 4:25 VP [employer] by DAVI MCCORMICK RN Pain Assessment Pain Symptoms : Yes DAVI MCCORMICK RN - 04/03/2011 4:25 VP [employer] Pain Pain Assessment Grid Pain 1 Location : Chest Intensity : 4 Interventions : Other: DAVI Giron RN - 04/03/2011 4:25 [employer] Source: [facility] [employer] Document Id: [id number] VP [employer]!9 [employer] Davi Manley R.N. - 04/03/2011 2:57 AM CST ED Primary Assessment Document Has Been Updated ED Primary Assessment Entered On: 04/03/2011 3:08 VP [employer] Performed On: 04/03/2011 2:57 VP [employer] by DAVI MCCORMICK RN Reason For Visit Problems(Active) Menstrual disorder, NOS Name of Problem: Menstrual disorder, NOS ; Recorder: DAVI MCCORMICK RN;Confirmation: Confirmed ; Classification: Nursing ; Code: 1231 ; Contributor System: [employer] ; Last Updated: 04/03/2011 3:15 VP [employer] ; Life Cycle Date: 04/03/2011 ; Life Cycle Status: Active ; Responsible Provider: DAVI MCCORMICK RN; Vocabulary: ICD-9-CM Diagnoses(Active) Chest Pain:Pleuritic Date: 04/03/2011 ; Diagnosis Type: Reason For Visit ; Confirmation: Complaint of ; Clinical Dx: Chest Pain:Pleuritic ; Classification: Medical ; Clinical Service: Emergency medicine ; Code: ICD-9-CM ; Probability: 0 ; Diagnosis Code: 786.52 Shortness of Breath Date: 04/03/2011 ; Diagnosis Type: Reason For Visit ; Confirmation: Complaint of; Clinical Dx: Shortness of Breath ; Classification: Medical ; Clinical Service: Emergency medicine ; Code: ICD-9-CM ; Probability: 0 ; Diagnosis Code: 786.05 Triage Chief Complaint Description : 41 year old female pressnts to the ED with c/o shortness of breath, and chest pain that has been occuring over the last 2 days and has gradually gotten worse. Information Given By : Patient Accompanied By : Significant other Mode of Arrival ED : Private vehicle Track : Medical Languages : Divehi Vital Signs Assessed : Yes DAVI MCCORMICK RN - 04/03/2011 2:57 VP [employer] Vital Signs Temperature Core : 37.1C(Converted to: 98.8DegF) Apical Heart Rate : 109/min (HI) Respiratory Rate : 24/min (HI) Systolic Blood Pressure : 144mmHg (HI) Diastolic Blood Pressure : 92mmHg (>HHI) NIBP Mean : 109mmHg BP Location : Left upper extremity SpO2 : 93% (LOW) Oxygen Therapy : Room air DAVI MCCORMICK RN - 04/03/2011 2:57 VP [employer] Pain Assessment Pain Symptoms : Yes DAVI MCCORMICK RN - 04/03/2011 2:57 VP [employer] Pain Pain Assessment Grid Pain 1 Location : Chest Laterality : Left Intensity : 4 Time Pattern : Acute Onset : Gradual Quality : Pressure, Radiating, Sharp, Throbbing, Tightness Pain Radiation : Yes (Comment: shoulder blade [DAVI MCCORMICK RN - 04/03/2011 2:57 [employer]] ) Aggravating Factors : Breathing Alleviating Factors : None, Rest Associated Symptoms : Shortness of breath Interventions : MD notified, Rest DAVI MCCORMICK RN - 04/03/2011 2:57 [employer] ED Physician Notification Time ED Physician Notification Time : 04/03/2011 3:01 [employer] DAVI MCCORMICK RN - 04/03/2011 2:57 [employer] STEPHANI STEPHANI Level 1 : No STEPHANI Level 2 : No STEPHANI Level 3 : Many Vital Signs STEPHANI : Danger zone (HR > 100, RR > 20, SaO2 < 92%) DAVI MCCORMICK RN - 04/03/2011 2:57 [employer] DCP GENERIC CODE Tracking Group : [facility] ED Tracking Acuity : 3 -Urgent DAVI MCCORMICK RN - 04/03/2011 2:57 [employer] Allergy Latex Reaction : No Latex Hives/Itch : No Latex Congestion/Eye Irr/Breathing : No Latex Symptom Progression : No Latex Previous Test : No DAVI MCCORMICK RN - 04/03/2011 2:57 [employer] Allergies (Active) morphine Estimated Onset Date: Unspecified ; Created By: DAVI MCCORMICK RN; Reaction Status: Active ; Category: Drug ; Substance: morphine ; Type: Allergy ; Updated By: DAVI MCCORMICK RN; Reviewed Date: 04/03/2011 3:21 [employer] ID Screen Drug Resistant Organism : No DAVI MCCORMICK RN - 04/03/2011 2:57 [employer] Immunizations Immunizations Current : No Last Tetanus : > 5 years Pneumovac : None Influenza : None DAVI MCCORMICK RN - 04/03/2011 2:57 [employer] Respiratory Airway : Patent Respirations : Unlabored Respiratory Pattern : Regular Oxygen Start Time : 04/03/2011 3:04 [employer] Oxygen Therapy : Nasal Cannula Oxygen Flow Rate : 2L/min Respiratory Detailed Assessment : Yes DAVI MCCORMICK RN - 04/03/2011 2:57 [employer] Resp Detailed Respiratory Patient Stated Symptoms : Shortness of breath Distress : Mild Cough : Dry, Strong DAVI MCCORMICK RN - 04/03/2011 2:57 [employer] Breath Sounds Assessment Grid BUL : Diminished BLL : Clear DAVI MCCORMICK RN - 04/03/2011 2:57 [employer] Cardiovascular Heart Rhythm : Regular Skin Color : Normal for ethnicity Skin Description : Dry Skin Temperature : Warm DAVI MCCORMICK RN - 04/03/2011 2:57 [employer] Neurological Level of Consciousness : Alert Orientation : Oriented x 3 Characteristics of Speech : Appropriate for age Neuro Patient Stated Symptoms : None Gait : Steady Swallowing Difficulty/Aspiration Risk : None DAVI MCCORMICK RN - 04/03/2011 2:57 [employer] ED Psychosocial Affect/Behavior : Calm, Cooperative, Appropriate DAVI MCCORMICK RN - 04/03/2011 2:57 [employer] Domestic Abuse Concerns : None, Other: present will reassess DAVI MCCORMICK RN - 04/03/2011 3:49 [employer] Emotional Support Available : Yes DAVI MCCORMICK RN - 04/03/2011 2:57 [employer] Gastrointestinal Nutrition ED : Adequate DAVI MCCORMICK RN - 04/03/2011 2:57 [employer] /OB Assessment Patient Stated Symptoms : None DAVI MCCORMICK RN - 04/03/2011 2:57 [employer] Musculoskeletal Fall Prevention Education Provided : NA DAVI MCCORMICK RN - 04/03/2011 2:57 [employer] Social Habits Tobacco Use/Currently Using : Yes Smoking Status : Current every day smoker DAVI MCCORMICK RN - 04/03/2011 2:57 [employer] Tobacco Use Grid Type : Cigarettes Cigarette Use Packs/Day : 1.5 DAVI MCCORMICK RN - 04/03/2011 2:57 [employer] Alcohol Use Grid Alcohol Use : Yes Frequency : Daily Amount : 3-4 DAVI MCCORMICK RN - 04/03/2011 3:49 [employer] DAVI MCCORMICK RN - 04/03/2011 2:57 [employer] Recreational Drug Use Grid Drug Use : None DAVI MCCORMICK RN - 04/03/2011 2:57 [employer] Source: [employer] Document Id: [id number] [employer] documented in this encounter ED Notes Davi Manley R.N. - 04/03/2011 4:19 AM CST ED Disposition Summary ED Disposition Summary Entered On: 04/03/2011 4:20 [employer] Performed On: 04/03/2011 4:19 [employer] by DAVI MCCORMICK RN ED Disposition Summary Accompanied By : Significant other Mode of Discharge : Ambulatory Transportation : Private vehicle Printed Discharge Instructions Given to Patient : Yes Patient Status at Discharge from ED : Improved Comment : Pt. sent home with RX #[id number] aLBUTEROL INHAILER, AND AZITHROMYACIN RX#[id number] DAVI MCCORMICK RN - 04/03/2011 4:19 [employer] Source: [place] Document Id: [id number] [employer] Davi Manley R.N. - 04/03/2011 3:26 AM CST ED Treatments and Procedures ED Treatments and Procedures Entered On: 04/03/2011 3:26 [employer] Performed On: 04/03/2011 3:26 [employer] by DAVI MCCORMICK RN Oxygen Therapy Oxygen Start Time : 04/03/2011 3:04 [employer] Oxygen Therapy : Room air Oxygen Stop Time : 04/03/2011 3:26 [employer] Oxygen Flow Rate : 2L/min DAVI MCCORMICK RN - 04/03/2011 3:26 [employer] [facility] Document Id: [id number] [employer]6 [employer] Krzysztof Hammonds M.D. - 04/03/2011 3:20 AM CST cough, shortness of breath Patient: CARLY DOTY Age: 41 years Sex: Female : 1970 Author: KRZYSZTOF HAMMONDS MD Attachments: None Associated Diagnosis: Pneumonia Basic Information Additional information:: Chief Complaint from Nursing Triage Note : Chief Complaint Description. 04/03/2011 2:57 [employer] Chief Complaint Description 41 year old female pressnts to the ED with c/o shortness of breath, and chest pain that has been occuring over the last 2 days and has gradually gotten worse. History of Present Illness The patient presents with difficulty breathing and cough. The onset was 1.5 weeks ago. The course/duration of symptoms is worsening. Degree at onset mild. Degree at present severe. There are Exacerbating factorss including none anddeep breaths (pleuritic), certain positions lying down.. The Relieving factors is none. Risk factors consist of smoking. Prior episodes: none. Therapy today: none. Associated symptoms: chest pain and fever. Additional history: Difficulty sleeping.. Review of Systems Additional review of systems information:All other systems reviewed and otherwise negative. Health Status Allergies: . Allergic Reactions (Selected) Severity not Documented Morphine- No reactions were documented. Past Medical/ Family/ Social History Medical history: Medical history. Resolved Pleurisy NOS (511.0): Onset in 2009 at 39 years. Resolved. Surgical history: Surgical history. H/O: section (130138647). Comments: 04/03/2011 03:14 - DAVI MCCORMICK RN x3 Family history: Family history. No family history items have been selected or recorded. Social history: Tobacco use: Regularly. Problem list: . All Problems Menstrual disorder, NOS / 626.9 / Confirmed Physical Examination Vital signs: Vital Signs, 04/03/2011 2:57 [employer] Temperature Core 37.1 C Apical Heart Rate 109 /min HI Respiratory Rate 24 /min HI SpO2 93 % LOW Systolic Blood Pressure 144 mmHg HI Diastolic Blood Pressure 92 mmHg >HHI Mean Arterial Pressure 109 mmHg BP Location Left upper Oxygen saturation Oxygen Therapy & Oxygenation Information. 04/03/2011 2:57 [employer] Oxygen Therapy Nasal Cannula Oxygen Therapy Room air Oxygen Flow Rate 2 L/min General: Alert. no acute distress. Skin: Warm. dry. pink. intact. Head: Normocephalic. atraumatic. Neck: Supple. trachea midline. Eye: Pupils are equal, round and reactive to light. extraocular movements are intact. Cardiovascular: No murmur. tachycardia. regular rhythm. Respiratory: Respirations: regular. Breath sounds: wheezes present: mild. Chest wall: No tenderness Gastrointestinal: Soft. Nontender. Non distended. Neurological: Alert and oriented to person, place, time, and situation Lymphatics: No lymphadenopathy Psychiatric: Cooperative Medical Decision Making Differential Diagnosis:Pneumonia, bronchitis, asthma. RationaleI am going to defer getting a white count for now as she is quite symptomatic and I am leaning towards treating for pneumonia regardless of what the results would be. This does not sound cardiac at all (cough, fever, pleuritic chest pain, sputum production), so I will defer EKG (no cardiac his tory, young patient, as well).. Documents reviewed:Emergency department nurses' notes. OrdersLaunch Orders. Radiology: XR Chest 2 Views (Order Processing): 04/03/2011 3:27 [employer], chest pain, dyspnea, hypoxia, ?pneumonia, effusions, Stat, Patient Bed, Once ED: Oxygen - ER (Order Processing): 04/03/2011 3:27 [employer], Keep oxygen saturations above 95%. Radiology results:X-ray, chest, discussed with radiologist, interpretation: patchy infiltrate in left base and possibly in RML could be due to pneumonia.. Reexamination/ Reevaluation Re-examination/Re-evaluation:patient states improvement with oxygen. Will give duoneb and start on azithromycin for take home as well as inhaler to take home.. Impression and Plan Diagnosis Pneumonia (Discharge, Emergency medicine, Medical) Discharge plan Condition: Improved, improved with duoneb. Started on Z pack prior to discharge. . Patient was given the following educational materials: PNEUMONIA (Adult), SMOKING CESSATION, ALBUTEROL Oral Inhaler, AZITHROMYCIN, PNEUMONIA (Adult), PNEUMONIA (Adult), PNEUMONIA (Adult), SMOKING CESSATION, ALBUTEROL Oral Inhaler, AZITHROMYCIN. Follow up with: ELSEWHERE PCP Within 3 - 5 days; Return to Emergency Department Within As Needed If symptoms worsen. Counseled: Patient, Regarding diagnosis, Regarding diagnostic results, Regarding treatment plan, Regarding prescription, Patient indicated understanding of instructions. Electronically Signed By: KRZYSZTOF HAMMONDS MD On: 04/03/2011 04:39 AM Modified by and Electronically Signed by: KRZYSZTOF HAMMONDS MD On: 04/03/2011 04:39 AM Source: [facility] [employer] Document Id: {[id number]} [employer] Davi Manley, R.N. - 04/03/2011 3:05 AM CST ED Treatments and Procedures ED Treatments and Procedures Entered On: 04/03/2011 3:08 [employer] Performed On: 04/03/2011 3:05 [employer] by DAVI MCCORMICK RN Cardiac Monitoring Monitoring Lead : II Monitoring Lead Big Data Developer : Initiated DAVI MCCORMICK RN - 04/03/2011 3:08 [employer] Source: [facility] [employer] Document Id: [id number] [employer]4 [employer] documented in this encounter Miscellaneous Notes Miscellmk - Davi Manley R.N. - 04/03/2011 4:35 AM CST Discharge Vital Signs Form Discharge Vital Signs Form Entered On: 04/03/2011 4:35 [employer] Performed On: 04/03/2011 4:35 [employer] by DAVI MCCORMICK RN Vital Signs Apical Heart Rate : 95/min Systolic Blood Pressure : 105mmHg Diastolic Blood Pressure : 71mmHg NIBP Mean : 82mmHg BP Location : Left upper extremity SpO2 : 96% Oxygen Therapy : Room air DAVI MCCORMICK RN - 04/03/2011 4:35 [employer] Source: [place] Document Id: [id number] [employer]!9 [employer] Miscellaneous - Davi Manley R.N. - 04/03/2011 4:26 AM CST Valuables/Belongings Valuables/Belongings Entered On: 04/03/2011 4:26 [employer] Performed On: 04/03/2011 4:26 [employer] by DAVI MCCORMICK RN Valuables/Belongings Valuables/Belongings Grid Valuables with Patient Clothes, Patient Valuables : Jacket, Pants, Shirt, Shoes, Undergarments Jewelry : Necklace, Rings Monetary Items : Purse DAVI MCCORMICK RN - 04/03/2011 4:26 [employer] Home Medication Disposition : None brought in with patient DAVI MCCORMICK RN - 04/03/2011 4:26 [employer] Source: [place] Document Id: [id number] [employer]!8 [employer] Miscellaneous - Davi Manley R.N. - 04/03/2011 4:13 AM CST RT Aerosol Therapy RT Aerosol Therapy Entered On: 04/03/2011 4:16 [employer] Performed On: 04/03/2011 4:13 [employer] by DAVI MCCORMICK RN Aerosol Therapy Done By : Nursing Therapy Treatment : Initial Indication : Cough Aerosol Delivery Device : Hand-Bulb atomizer Aerosol Treatment Route : Mouth piece Patient Participation in Treatment : Cooperative Patient Effort : Good DAVI MCCORMICK RN - 04/03/2011 4:13 [employer] PreTx/Assess SpO2 : 95% DAVI MCCORMICK RN - 04/03/2011 4:13 [employer] Post Tx Assess SpO2 : 95% DAVI MCCORMIKC RN - 04/03/2011 4:25 [employer] Post Tx Assess II Skin Color : Normal for ethnicity Level of Consciousness : Alert Respirations : Unlabored DAVI MCCORMICK RN - 04/03/2011 4:13 [employer] Source: [place] Document Id: [id number] [employer]!17 [employer] Miscellaneous - Davi Manley R.N. - 04/03/2011 2:52 AM CST Facility Charge Ticket Facility Charge Ticket Entered On: 04/03/2011 4:21 [employer] Performed On: 04/03/2011 2:52 [employer] by DAVI MCCORMICK RN Facility Charge Mode of Arrival ED : Private vehicle [facility] Mode of Arrival Interpreted : Standard [facility] Process Management : None [facility] Order Management : EKG, RT, Ancillary Services, Xray - plain films 30 Minutes Critical Care : No [facility] Nursing Assessment : Triage and 3-5 nursing assessments [facility] Disposition : Discharge DAVI MCCORMICK RN - 04/03/2011 4:20 [employer] Chief Complaint 8.50.02 Reason For Visit Category : Cardiorespiratory ED Chief Complaint Cardiorespiratory 8.5 : Chest pain TVL Calc : 20 TVL for Facility Charge Ticket Dx : Level 5 DAVI MCCORMICK RN - 04/03/2011 4:20 [employer] Source: [place] Document Id: [id number] [employer]!14 [employer] Miscellaneous - Conversion, Historical Provider Ser - 04/03/2011 2:52 AM [employer] Facility Charge Ticket Facility Charge Ticket Entered On: 04/09/2011 9:45 [employer] Performed On: 04/03/2011 2:52 [employer] by ANDREWS PLATT Facility Charge TVL Level for Facility Charge Ticket : Level 3 Mode of Arrival ED : Private vehicle [facility] Mode of Arrival Interpreted : Standard [facility] Process Management : None [facility] Order Management : EKG, RT, Ancillary Services, Xray - plain films 30 Minutes Critical Care : No [facility] Nursing Assessment : Triage and 1-2 nursing assessments [facility] Disposition : Discharge [facility] Total Points with Diagnosis Control : 7 [facility]x Visit Level : 03912 Level 3 ANDREWS PLATT - 04/09/2011 9:45 [employer] Chief Complaint 8.50.02 Reason For Visit Category : Cardiorespiratory ED Chief Complaint Cardiorespiratory 8.5 : Cough TVL Calc : 8 TVL for Facility Charge Ticket Dx : Level 3 ANDRWES PLATT - 04/09/2011 9:45 [employer] Source: [facility] [employer] Document Id: [id number] [employer]!17 documented in this encounter Plan of Treatment Not on filedocumented as of this encounter Visit Diagnoses Not on filedocumented in this encounter
--- OUTSIDE RECORDS SUMMARY | 2021-12-20 09:02 | XMS_ITS | Encounter Summary ---
:1970 Author Organization [facility] Address [address] [place] [address] Care Team Providers Name Role Phone Catarina Hutton M.D. Primary Care Provider [phone] Reason for Visit Reason Comments Med Refill Encounter Details Date Type Department Care Team Description 01/13/2019 Refill Department of [facility] Kamran Hutton Med Refill Medicine, [place] [facility], in [address] [address] [phone] Social History Tobacco Use Types Packs/Day Years [...] this encounter Miscellaneous Notes Telephone Encounter - Maribeth Negron R.N. - 01/13/2019 11:07 AM PARTNER MANAGEMENT CONSULTANT Last filled 01/09/18, listed as not discontinued. Last visit 01/27/18. Pended visit. Order pended for 3 months of medication as PCP is booked out several months for physical appointments. NER MANAGEMENT CONSULTANT Telephone Encounter - Julio Cesar Roberson - 01/13/2019 11:02 AM CST Please review surescript medication request. The requested medication is not on the patient's medication list. NER MANAGEMENT CONSULTANT documented in this encounter Plan of Treatment Not on filedocumented as of this encounter Visit Diagnoses Not on filedocumented in this encounter Additional Health Concerns Assessment Noted Time PHQ-9 Depression Total Score: 04/13/2012 12:[address] documented as of this encounter Care Teams Business Banker Relationship Specialty Start Date End Date Catarina Hutton M.D. PCP - General Family Medicine 01/05/[address] [place] [phone] documented as of this encounter
--- OUTSIDE RECORDS SUMMARY | 2021-12-20 09:02 | XMS_ITS | Encounter Summary ---
:1970 Author Organization [facility] Address [address] [place] [address] Care Team Providers Name Role Phone Catarina Hutton M.D. Primary Care Provider [phone] Encounter Details Date Type Department Care Team Description 06/30/2020 Orders Only [facility] PCP [facility] Sa chetan Orozco M.D. [address] [place], [place] [phone] (Wo rk) Social History Tobacco Use Types [...] documented as of this encounter Care Teams Safe Technician Relationship Specialty Start Date End Date Catarina Hutton M.D. PCP - General Family Medicine 01/05/[address] [place] [phone] documented as of this encounter
--- OUTSIDE RECORDS SUMMARY | 2021-12-20 09:02 | XMS_ITS | Encounter Summary ---
:1970 Author Organization [facility] Address [address] [place] [address] Care Team Providers Name Role Phone Catarina Hutton M.D. Primary Care Provider [phone] Reason for Referral Outpatient (Routine) - Authorized Specialty Diagnoses / Procedures Referred By Contact Refer red To Contact Diagnoses Screening Mammogram Breast Cancer Catarina Hutton [place] Procedures BI Breast Screening Bilateral with Tomosynthesis Gilma Woody [address] [phone] Referral ID Status Reason Start Date Expiration Date Visits V isits Requested Authorized [id number] Authorized 11/13/2021 11/13/2022 1 1 Encounter Details Date Type Department Care Team Description 11/13/2021 Orders Only [facility] PCP [facility] Rick Denise, [facility] eening Mammogram MNT Catarina Woody M.D. Breast Cancer [id number] [place] [phone] (Wo rk) Social History Tobacco Use [...] Treatment Scheduled Orders Name Type Priority Associated Order Schedule Diagnoses BI Breast Screening Imaging RAD - Routine (most Screening Mamm ogram Expected: Bilateral with inpatients and all Breast Cancer 2021, Tomosynthesis outpatients) Expires: 05/12/2022 documented as of this encounter Visit Diagnoses Diagnosis Screening Mammogram Breast Cancer documented in this encounter Additional Health Concerns Assessment Noted Time PHQ-9 Depression Total Score: 11 04/13/2012 12:[address] documented as of this encounter Care Teams Bottle Label Inspector Relationship Specialty Start Date End Date Catarina Hutton M.D. PCP - General Family Medicine 01/05/[address] [place] [phone] documented as of this encounter
--- OUTSIDE RECORDS SUMMARY | 2021-12-20 09:02 | XMS_ITS | Encounter Summary ---
:1970 Author Organization [facility] Address [address] [place] [address] Care Team Providers Name Role Phone Catarina Hutton M.D. Primary Care Provider [phone] Encounter Details Date Type Department Care Team Description 01/23/2018 Clinical Communication [facility] Esteban Woody M.D. [address] [phone] [place], [place] [phone] (Work) [phone] Social History Tobacco Use Types Packs/Day Years [...] this encounter Miscellaneous Notes Telephone Encounter - Catarina Hutton M.D. - 01/23/2018 1:47 PM ENTERPRISE ACCOUNT EXECUTIVE Yes- this is fine. Catarina Marcial RPRISE ACCOUNT EXECUTIVE Telephone Encounter - Caroline Pantoja - 01/23/2018 11:12 AM CST Patient was scheduled 01/23/18 per providers ok. Had to call and cancel due to an emergency. I rescheduled to 01/27 into providers lunch time. Is this ok? If not I will call patient to reschedule as directed by provider. RPRISE ACCOUNT EXECUTIVE documented in this encounter Plan of Treatment Not on filedocumented as of this encounter Visit Diagnoses Not on filedocumented in this encounter Additional Health Concerns Assessment Noted Time PHQ-9 Depression Total Score: 11 04/13/2012 12:[address] documented as of this encounter Care Teams Bad Credit Collector Relationship Specialty Start Date End Date Catarina Hutton M.D. PCP - General Family Medicine 01/05/[address] [place] [phone] documented as of this encounter
--- OUTSIDE RECORDS SUMMARY | 2021-12-20 09:02 | XMS_ITS | Encounter Summary ---
:[address] [facility] Address [address] [place] [address] Care Team Providers Name Role Phone Catarina Hutton M.D. Primary Care Provider [phone] Reason for Visit Reason Comments Conjunctivitis Encounter Details Date Type Department Care Team Description 02/25/2020 Nurse Triage Department of [facility] Zoey Barnard Co njunctivitis Medicine, [facility], R.N. in [place], [place] [address] [facility] [address] [place] [phone] Social History Tobacco Use Types Packs/Day Years [...] this encounter Miscellaneous Notes Telephone Encounter - Zoey Barnard, R.N. - 02/25/2020 10:30 AM CST COVID-19 Nurse Line Screening ASSESSMENT Combo COVID + Upper Respiratory Infection (URI) Screening Select the most appropriate pathway: : Adult Have you had close contact* with a person who has a LABORATORY CONFIRMED case of COVID-19 in the past 14 days?: No (Continue Screening) In the last 48 hours, have you had a fever* OR symptoms that are unrelated to a preexisting illness?: No symptoms noted (Continue Screening) Have you tested positive for COVID-19 in the last 90 days?: No (Continue Screening) Have you been advised to undergo testing or are you requesting testing?: No (End Screening)- Testingnot indicated Testing Recommendation Endpoint Is testing recommended? : Not recommended to test PLAN Endpoint recommendation: Screening positive, patient refusing testing. Care Points: -Wash hands frequently with soap and water for at least 20 seconds -If soap and water are not available, use a hand body wirer -Avoid touching your eyes, nose and mouth. -Clean and disinfect high-touch surfaces routinely. -Wear a mask over your nose and mouth. A cloth face cover is not a substitute for social distancing -Continue to keep about 6 feet between yourself and others. -Avoid public areas and public transportation. -Find new ways to connect with family and friends, get support and share feelings. -Seek emergent care if any of the following occur Trouble breathing Bluish lips or face Persistent pain or pressure in the chest New confusion or inability to rouse. -Notify your regular care provider of any new or worsening symptoms. Asymptomatic without exposure Carepoints: Testing is not recommended at this time. If you become symptomatic, please call back for additional screening. Education: Patient/caregiver able to teach back Patient agreeable to plan of care: Yes The following references were used: [facility] novel coronavirus (COVID- 19) resources Nursing judgement L WHEEL ENGRAVER Telephone Encounter - Zoey Barnard R.N. - 02/25/2020 10:27 AM CST Carly is calling about pink eye in one eye x 18 hours. Some discharge and using warm wash cloth. What to do? Reason for Disposition ??? [1] Very small amount of discharge AND [2] only in corner of eye Protocols used: EYE - PUS OR [id number] CALL BACK IF: * Pus increases in amount * Pus in corner of eye lasts over 3 days * Eyelid becomes red or swollen * You become worse. NO EYEDROPS: Antibiotic eyedrops are not needed for a tiny amount of pus in the corner of the eye. Bacterial eye infections usually produce lots of pus. REASSURANCE AND EDUCATION: A small amount of pus or mucus in the inner corner of the eye is often due to a cold or virus. Sometimes it's just a reaction to an irritant in the eye. Usually it's gone in 2 or 3 days. HOME CARE: * You should be able to treat this at home. REMOVE PUS: Remove the pus or mucus from the corner of the eye with warm water and wet cotton balls.Repeat this whenever pus or mucus reappears. This should be the only treatment needed. L WHEEL ENGRAVER documented in this encounter Plan of Treatment Not on filedocumented as of this encounter Visit Diagnoses Not on filedocumented in this encounter Additional Health Concerns Assessment Noted Time PHQ-9 Depression Total Score: 11 04/13/2012 12:[address] documented as of this encounter Care Teams Tripe Scraper Relationship Specialty Start Date End Date Catarina Hutton M.D. PCP - General Family Medicine 01/05/[address] [place] [phone] documented as of this encounter
--- OUTSIDE RECORDS SUMMARY | 2021-12-20 09:02 | XMS_ITS | Encounter Summary ---
:1970 Author Organization [facility] Address [address] [place] [address] Care Team Providers Name Role Phone Unavailable Primary Care Provider Unavailable Encounter Details Date Type Department Care Team Description 12/02/2011 Hospital Encounter [facility] Juliano Webster III, M.D. [address] [phone] (Wo rk) Social History Tobacco Use Types Packs/Day Years Used Date Smoking Tobacco: Never Assessed Sex Assigned at Date Recorded Not on file documented as of this encounter Last Filed Vital Signs Vital Sign Reading Time Taken Comments Blood Pressure 116/80 12/02/2011 4:03 PM CDT Pulse 80 12/02/2011 4:03 PM CDT Temperature - - Respiratory Rate 16 12/02/2011 4:03 PM CDT Oxygen Saturation - - Inhaled Oxygen Concentration - - Weight 54.8 kg (120 lb 13 oz) 12/02/2011 4:03 PM CDT Height - - Body Mass Index - - documented in this encounter Progress Notes Alden Webster M.D. - 12/02/2011 3:52 PM CDT [id number] CHIEF COMPLAINT/REASON FOR VISIT Right ear pain. HISTORY OF PRESENT ILLNESS This is a 41-year-old white female who comes in with complaints of right ear pain that has been ongoing for approximately 11/2 weeks. She had her teeth cleaned immediately prior to that and her ears have been popping ever since. She hears an echo that she rates as 4 out of 10 in intensity and notes an achy sensation. She has taken some mild cold medications but she is unsure if any of those had phenylephrine. She has had a runny nose, sore throat, headache, and chills but no fever and no night sweats. SYSTEMS REVIEW Review of systems with pertinent positives and negatives noted above. Remainder of complete review of systems is negative. PAST MEDICAL/SURGICAL HISTORY Menstrual disorder. VITAL SIGNS Temperature 37.5, pulse 80, respirations 16, blood pressure 116/80, weight 54.8 kg. PHYSICAL EXAMINATION GENERAL: Patient is alert and cooperative. She is in no acute distress at this time. HEENT: Head is atraumatic, normocephalic and without deformities. Ears are normal bilaterally with the exception of some mild otosclerosis. The right TM has some mild dulling of the conal light. Mouth with no hyperemia exudates of the posterior pharynx. [place]-Hallpike maneuver produces significant dizziness with minimal nystagmus. NECK: There is no cervical adenopathy. LUNGS: Clear to auscultation bilaterally. Norma-Hallpike maneuver produces significant dizziness with minimal nystagmus. IMPRESSION/REPORT/PLAN 1. URI. 2. Benign paroxysmal positional vertigo. PLAN: I am going to get the patient in to see physical therapy for vestibular maneuvers in the next day or so. I recommended pseudoephedrine to help clear out the fluid located in her ear. I recommended other symptomatic treatment for now. If these symptoms persist, I will give her a prescription for meclizine. Physical therapy will let us know if there is progress on her vertigo. Her questions were answered and reassurance was given. Alden Webster M.D./priyanka Electronically Signed By: ALEDN WEBSTER III, MD On: 12/06/2011 11:20 AM Source: [facility] MHSDOLBEYNONRADSYS Document Id: [id number] documented in this encounter Miscellaneous Notes Miscellaneous - Alden Webster M.D. - 12/02/2011 4:32 PM CDT Ambulatory Patient Summary [address] [id number] Visit Information Name: CARLY DOTY Current Date: 12/02/2011 16:32:17 Physicians Attending Provider: ALDEN WEBSTER III, MD Primary Care Provider: PCP, PADMINISSIGNED Your Medications Here is a list of your medications. It is important to take your medications as directed. Use a pillbox or chart to help remind you to take your medications. Please let your doctor or nurse know if you have problems taking your medications. Medication/Strength Dose Route Frequency Indications/Special Instructions/Comments albuterol (albuterol CFC free 90 mcg/inh inhalation aerosol) 2 puff(s) Inhalation as directed as needed for Shortness of breath / Wheezing 15 to 30min before exercise Attention: If you have any medications at home that are not on this list, DO NOT take them until youcontact your provider for clarification. Your Allergies & Intolerances Substance Reaction Symptoms Category Comments morphine Drug Your Problem List Problem Status Onset Comments Menstrual disorder, NOS Active 12/02/11 date of onset unknown Your Upcoming Appointments Date Time Location Reason Provider No Appointments found Your Goals/Additional instructions: [facility] Document Id: [id number] Miscellaneous - Alden Webster M.D. - 12/02/2011 4:32 PM CDT Ambulatory Depart Summary [address] [address] Visit Information Name: CARLY DOTY Visit Date: 12/02/2011 16:32:16 Attending Provider: ALDEN WEBSTER III, MD Primary Care Provider: PCP, PADMINISSIGNED CARYL DOTY has been given the following list of medications: Your Medications It is important to take your medications as directed. Use a pill box or chart to help remind you to take your medications. Please let your doctor or nurse know if you have problems taking your medications. Medication/Strength Dose Route Frequency Indications/Special Instructions/Comments albuterol (albuterol CFC free 90 mcg/inh inhalation aerosol) 2 puff(s) Inhalation as directed as needed for Shortness of breath / Wheezing 15 to 30min before exercise Attention: If you have any medications at home that are not on this list, DO NOT take them until youcontact your provider for clarification. Additional Information: Source: [facility] POWERCHART Document Id: [id number] Miscellaneous - Lula Boucher L.P.N. - 12/02/2011 4:03 PM CDT Adult Fermentation Operator Intake/History Adult Fermentation Operator Intake/History Entered On: 12/02/2011 16:06 CDT Performed On: 12/02/2011 16:03 CDT by LULA BOUCHER LPN Intake Chief Complaint : right ear pain x 1.5 weeks ago. Had teeth cleaned and ear had popping noise since,echo Ear pain at 5. Dizziness, sinus congestion, watery eyes. Temperature Core : 37.5C(Converted to: 99.5DegF) Peripheral Pulse Rate : 80/min Respiratory Rate : 16/min Heart Rhythm : Regular Systolic Blood Pressure : 116mmHg Diastolic Blood Pressure : 80mmHg NIBP Mean : 92mmHg BP Location : Right upper extremity Blood Pressure Cuff Size : Regular Actual Weight : 54.8kg(Converted to: 120lb 13oz) Weight Source : Standing scale Dosing Weight Clinic : 54.80kg LULA BOUCHER LPN - 12/02/2011 16:03 CDT Subjective Pain Symptoms : Yes LULA BOUCHER LPN - 12/02/2011 16:03 CDT Pain Pain Assessment Grid Pain 1 Location : Ear Laterality : Right Intensity : 4 SOPHIAESLULA BURROWS LPN - 12/02/2011 16:03 CDT Dependent Habits Tobacco Use/Currently Using : Yes Exposure to Tobacco Smoke : Patient smokes Smoking Status : Current every day smoker LULA BOUCHER LPN - 12/02/2011 16:03 CDT Tobacco Use Grid Type : Cigarettes Cigarette Use Packs/Day : 1.5 LULA BOUCHER LPN - 12/02/2011 16:03 CDT Caffeine Use Grid Caffeine Use : None ASLLULA MARTEL LPN - 12/02/2011 16:03 CDT Recreational Drug Use Grid Drug Use : None LULA BOUCHER LPN - 12/02/2011 16:03 CDT Allergy Allergies (Active) morphine Estimated Onset Date: Unspecified ; Created By: KODY MCCORMICK RN; Reaction Status: Active ; Category: Drug ; Substance: morphine ; Type: Allergy ; Updated By: KODY MCCORMICK RN; Reviewed Date: 12/02/2011 15:59 CDT Source: [facility] POWERCHART Document Id: [id number] Miscellaneous - Lula Boucher L.P.NRenard - 12/02/2011 4:02 PM CDT Health Assessment Health Assessment Entered On: 12/02/2011 16:03 CDT Performed On: 12/02/2011 16:02 CDT by LULA BOUCHER LPN Health Assessment Complete Health Assessment Complete or Modified : Annual Health Assessment Annual Health Assessment Completed : Yes LULA BOUCHER LPN - 12/02/2011 16:02 CDT Nutrition Nutrition Risk Factors by History Adult : None LULA BOUCHER LPN - 12/02/2011 16:02 CDT Functional Current Daily Living Assistance : None LULA BOUCHER LPN - 12/02/2011 16:02 CDT Dependent Habits Tobacco Use/Currently Using : Yes Exposure to Tobacco Smoke : Patient smokes Smoking Status : Current every day smoker LULA BOUCHER LPN - 12/02/2011 16:02 CDT Tobacco Use Grid Type : Cigarettes Cigarette Use Packs/Day : 1.5 LULA BOUCHER LPN - 12/02/2011 16:02 CDT Caffeine Use Grid Caffeine Use : None LULA BOUCHER LPN - 12/02/2011 16:02 CDT Recreational Drug Use Grid Drug Use : None LULA BOUCHER LPN - 12/02/2011 16:02 CDT Psychosocial Domestic Abuse Concerns : None LULA BOUCHER LPN - 12/02/2011 16:02 CDT Advance Directive Advanced Directives : No LULA BOUCHER LPN - 12/02/2011 16:02 CDT Educ Needs Learning Style Preference Adult Grid Patient : Demonstration, Printed materials, Verbal explanation Family : None LULA BOUCHER LPN - 12/02/2011 16:02 CDT Source: [facility] [employer] Document Id: [id number] documented in this encounter Plan of Treatment Not on filedocumented as of this encounter Visit Diagnoses Not on filedocumented in this encounter
--- OUTSIDE RECORDS SUMMARY | 2021-12-20 09:03 | XMS_ITS | Encounter Summary ---
:1970 Author Organization [facility] Address [address] [place] [address] Care Team Providers Name Role Phone Unavailable Primary Care Provider Unavailable Encounter Details Date Type Department Care Team Description 03/20/[address] [facility] Deana Sewell, AMANDA, C.N.P., D.N.P. [address] [place] [address] (Wo rk) Social History Tobacco Use Types Packs/Day Years Used Date Smoking Tobacco: Never Assessed Sex Assigned at Date Recorded Not on file documented as of this encounter Plan of Treatment Not on filedocumented as of this encounter Visit Diagnoses Not on filedocumented in this encounter
--- OUTSIDE RECORDS SUMMARY | 2021-12-20 09:03 | XMS_ITS | Encounter Summary ---
:1970 Author Organization [facility] Address [address] [place] [address] Care Team Providers Name Role Phone Unavailable Primary Care Provider Unavailable Encounter Details Date Type Department Care Team Description 05/21/2007 Hospital Encounter [facility] INPT/OBSRV Danish Avila M.D. [address] [place], [place] [address] (Wo rk) Social History Tobacco Use Types Packs/Day Years Used Date Smoking Tobacco: Never Assessed Sex Assigned at Date Recorded Not on file documented as of this encounter Plan of Treatment Not on filedocumented as of this encounter Visit Diagnoses Not on filedocumented in this encounter
--- OUTSIDE RECORDS SUMMARY | 2021-12-20 09:03 | XMS_ITS | Encounter Summary ---
:1970 Author Organization [facility] Address [address] [place] [address] Care Team Providers Name Role Phone Unavailable Primary Care Provider Unavailable Encounter Details Date Type Department Care Team Description 12/15/2008 Hospital [facility] Aniket Lott, INPT/OBSRV M.DRenard [id number] [place] [phone] (Wo rk) Social History Tobacco Use Types Packs/Day Years Used Date Smoking Tobacco: Never Assessed Sex Assigned at Date Recorded Not on file documented as of this encounter Plan of Treatment Not on filedocumented as of this encounter Visit Diagnoses Not on filedocumented in this encounter
--- OUTSIDE RECORDS SUMMARY | 2021-12-20 09:03 | XMS_ITS | Encounter Summary ---
:1970 Author Organization [facility] Address [address] [place] [address] Care Team Providers Name Role Phone Unavailable Primary Care Provider Unavailable Encounter Details Date Type Department Care Team Description 01/02/2007 Hospital Encounter [facility]X [facility] Aniket Lott, INPT/OBSRV M.DRenard [id number] [place] [phone] (Wo rk) Social History Tobacco Use Types Packs/Day Years Used Date Smoking Tobacco: Never Assessed Sex Assigned at Date Recorded Not on file documented as of this encounter Plan of Treatment Not on filedocumented as of this encounter Visit Diagnoses Not on filedocumented in this encounter
== END 2021-12-13 12:16 | disposition home or self-care (01) ==
LOC: NFLDUCREF 12-20 09:00
PROVIDERS: PCP Family Medicine; Visit Provider Student in an Organized Health Care Education/Training Program
DX: R30.0 Dysuria (principal); N39.0 Urinary tract infection, site not specified
CPT/HCPCS: 87086

== ENCOUNTER 2022-12-02 11:00 | Outpatient (CLI) | payer BC, SELFPAY | END 2022-12-02 11:01 | disposition home or self-care (01) | LOC: NFLDREF 12-04 14:23 | PROVIDERS: PCP Family Medicine; Referring Provider Family Medicine; Visit Provider Family Medicine | DX: Z00.00 Encounter for general adult medical examination without abnormal findings (principal); E78.5 Hyperlipidemia, unspecified | CPT/HCPCS: 80053; 80061 ==

== ENCOUNTER 2023-03-21 09:26 | Outpatient (CLI) | payer BC, SELFPAY ==
--- OUTSIDE RECORDS SUMMARY | 2023-03-21 09:30 | XMS_ITS | Referral Summary ---
Author Name Unknown Organization [facility] Address [address] [place] [address] Care Team Providers Care Trackmobile Operator Name Role Phone Elsewhere, Pcp Primary Care Provider Unavailabl e Source Comments Patient records contain information from all sites at [facility]. For routine questions regarding patient records, call [phone] during business hours, M-F 8:00 AM - 5:00 PM Central Time. Record requests for emergency care only can be directed to [phone] at any time.[facility] Allergies Active Allergy Reactions Criticality Noted Date Comments Meperidine Itching 06/05/2013 DEMEROL Morphine Other (see comments) 04/03/2011 Medications Medication Sig Dispensed Refills Start Date End Date Status amoxicillin (AMOXIL) 875 mg tablet Take 1 tablet (875 mg total) by mouth every 12 (twelve) hours. 20 tablet 0 07/23/2018 Active raNITIdine (ZANTAC) 150 mg tablet Take 1 tablet (150 mg total) by mouth 2 (two) times a day. Please advise visit needed for further refills. 180 tablet 0 01/13/2019 Active Active Problems Problem Noted Date Diagnosed Date Loss Hearing Sensorineural Unilateral 02/04/2012 Social History Tobacco Use Types Packs/Day Years Used Date Smoking Tobacco: Every Day Cigarettes 25 Smokeless Tobacco: Never PHQ-2 Answer Date Recorded PHQ-2 Score 0 08/19/2018 Nutrition Answer Date Recorded Nutrition: EVOO Fat Source Unknown 05/08 Nutrition: Servings of Fruits/Vegetables per Day Not on file 05/08/2020 Dental Answer Date Recorded Dental: Regular Dentist Unknown 05/09/19 21 Sex and Gender Information Value Date Recorded Sex Assigned at Not on file Gender Identity Not on file Sexual Orientation Not on file Last Filed Vital Signs Vital Sign Reading Time Taken Comments Blood Pressure 125/81 10/25/2021 1:07 PM CDT Pulse 78 10/25/2021 1:07 PM CDT Temperature 36.8 ??C (98.2 ??F) 10/25/2021 1:07 PM CD T Respiratory Rate 16 10/25/2021 1:07 PM CDT Oxygen Saturation 98% 10/25/2021 1:07 PM CDT Inhaled Oxygen Concentration - - Weight 46.2 kg (101 lb 13.6 oz) 07/23/2018 8:49 PM CDT Height 156 cm (5' 1.42) 01/27/2018 2:50 PM DISPENSARY TECHNICIAN Body Mass Index 18.98 01/27/2018 2:50 PM DISPENSARY TECHNICIAN Plan of Treatment Not on file Care Teams Trackmobile Operator Relationship Specialty Start Date End Date Elsewhere, Pcp PCP - General Internal Medicine 02/18/22
--- OUTSIDE RECORDS SUMMARY | 2023-03-21 09:30 | XMS_ITS | Clinical Summary ---
Author Name Unknown Organization [facility] Address [address] [place] [address] Care Team Providers Care Central Office Repairer Supervisor Name Role Phone Elsewhere, Pcp Primary Care Provider Unavailabl e Source Comments Patient records contain information from all sites at [facility]. For routine questions regarding patient records, call [phone] during business hours, M-F 8:00 AM - 5:00 PM Central Time. Record requests for emergency care only can be directed to [phone] at any time.[facility] Allergies Active Allergy Reactions Criticality Noted [...] Diagnosed Date Loss Hearing Sensorineural Unilateral 02/04/2012 Family History Medical History Relation Name Comments [...] 156 cm (5' 1.42) 01/27/2018 2:50 PM PROFILE GRINDER TECHNICIAN Body Mass Index 18.98 01/27/2018 2:50 PM PROFILE GRINDER TECHNICIAN Plan of Treatment Health Maintenance Due Date Last Done Comments CT Colonography 1971 Cologuard 1971 Colonoscopy 1971 Colorectal Cancer Screening 1971 FIT 1971 HIV Screening 1970 Hepatitis B Vaccines (1 of 3 - 3-dose series) 1971 Hepatitis C Screening 1971 Mammogram 1971 Tobacco Cessation counseling 1971 Pneumococcal vaccine (0-64 y ears) (1 of 2 - PCV) 1977 Fasting Glucose for Diabetes Screening 01/27/2021 01/27/2018, 09/04/2017, 02/02/2015 COVID-19 Vaccine (4 - 2022-24 season) 2022 03/20/2021, 09/14/2020, 08/24/2020 Influenza Vaccine (#1) 2022 Cervical Cancer Screening 01/27/2023 01/27/2018, Lipid (Cholesterol) Screening 01/27/2023 01/27/2018 Zoster Vaccines (2 of 2) 01/27/2023 12/02/2022 Depression Screening (Annual PHQ-2) 03/10/2023 DTaP,Tdap,and Td Vaccines (2 - Td or Tdap) 05/15/2025 05/16/2015 Care Teams Central Office Repairer Supervisor Relationship Specialty Start Date End Date Elsewhere, Pcp PCP - General Internal Medicine 02/18/22
--- OUTSIDE RECORDS SUMMARY | 2023-03-21 09:30 | XMS_ITS ---
Author Name Unknown Organization [facility] Address [address] [place] [address] Care Team Providers Care Camera Control Operator Name Role Phone Unavailable Unavailable Unavailable Surgery Details Not on file Complications Check Surgery Details section. Procedure Estimated Blood Loss Check Surgery Details section. Procedure Findings Check Surgery Details section. Procedure Specimens Taken Check Surgery Details section.
--- NOTE | 2023-03-21 10:00 | CRLHL7_ITS ---
For Patients: As a result of the Century Cures Act, medical imaging exams and procedure reports are released immediately into your electronic medical record. You may view this report before your referring provider. If you have questions, please contact your health care provider. INDICATION: ENLARGED LYMPH NODES TECHNIQUE: CT of the neck with 51 ml iodinated contrast agent. Coronal and sagittal reconstructions are included. COMPARISON: None FINDINGS: Minimal asymmetric enlargement of the right lingual tonsil. Direct visualization is recommended. Otherwise no oral cavity or oropharyngeal primary neoplasm identified. Enlarged heterogeneously enhancing 2.2 x 1.7 centimeter right level 2A lymph node is concerning for metastatic disease. Otherwise normal appearing cervical lymph nodes bilaterally. The oral cavity, nasopharyngeal, oropharyngeal and hypopharyngeal mucosal spaces are normal. The supraglottic, glottic and infraglottic larynx are unremarkable. The airway including the trachea is normal and is patent. The parotid glands, submandibular and sublingual glands are normal in appearance. The thyroid gland is normal in appearance. The vascular structures opacify normally with contrast material. Carotid siphon atherosclerosis. Leftward deviation of the nasal septum. Scattered mild cervical spondylosis without significant spinal canal stenosis. Moderate neural foramen narrowing at C5-6 due to uncovertebral hypertrophy. Mild mucosal thickening right maxillary sinus. No suspicious lytic or blastic osseous lesions. Visualized paranasal sinuses and mastoid air cells are clear. Visualized orbital and intracranial contents are unremarkable. Supraclavicular regions, mediastinum and soft tissues of the imaged chest wall are unremarkable. There is a 1.2 x 1 cm ground-glass opacity in the right upper lobe that could represent adenocarcinoma versus infectious/inflammatory process. Three-month follow-up chest CT imaging is recommended. IMPRESSION: 1. Enlarged heterogeneous enhancing right level IIa lymph node concerning for metastatic lymphadenopathy. 2. Minimal asymmetric enlargement of the right lingual tonsil. Otherwise no oral cavity or oropharyngeal primary neoplasm identified. ENT consult for direct visualization is recommended 3. A 1.2 cm ground-glass opacity in the right upper lobe could represent adenocarcinoma versus infectious/inflammatory process. Three-month follow-up chest CT imaging is recommended. Please note that all CT scans at this facility use dose modulation, iterative reconstruction, and/or weight-based dosing when appropriate to reduce radiation dose to as low as reasonably achievable. Dictated by Eugenio Gamino MD @ 03/21/2023 11:26:31 AM (Electronically Signed)
== END 2023-03-21 09:27 | disposition home or self-care (01) ==
LOC: CT 09:28
PROVIDERS: PCP Family Medicine; Visit Provider Family Medicine
DX: R59.0 Localized enlarged lymph nodes (principal)
CPT/HCPCS: 70491; Q9967

== ENCOUNTER 2023-04-03 10:28 | Outpatient (CLI) | payer BC, SELFPAY ==
--- OUTSIDE RECORDS SUMMARY | 2023-04-03 10:32 | XMS_ITS | Referral Summary ---
Author Name Unknown Organization [facility] Address [address] [place] [address] Care Team Providers Care Paintless Dent Repair Technician Name Role Phone Elsewhere, Pcp Primary Care Provider Unavailabl e Source Comments Patient records contain information from all sites at [facility]. For routine questions regarding patient records, call [phone] during business hours, M-F 8:00 AM - 5:00 PM Central Time. Record requests for emergency care only can be directed to [phone] at any time.[facility] Allergies Active Allergy Reactions Criticality Noted Date [...] 156 cm (5' 1.42) 01/27/2018 2:50 PM ASSISTANT MAINTENANCE MANAGER Body Mass Index 18.98 01/27/2018 2:50 PM ASSISTANT MAINTENANCE MANAGER Plan of Treatment Not on file Care Teams Paintless Dent Repair Technician Relationship Specialty Start Date End Date Elsewhere, Pcp PCP - General Internal Medicine 02/18/22
--- OUTSIDE RECORDS SUMMARY | 2023-04-03 10:32 | XMS_ITS | Clinical Summary ---
Author Name Unknown Organization [facility] Address [address] [place] [address] Care Team Providers Care Clerical Manager Name Role Phone Elsewhere, Pcp Primary Care Provider Unavailabl e Source Comments Patient records contain information from all sites at [facility]. For routine questions regarding patient records, call [phone] during business hours, M-F 8:00 AM - 5:00 PM Central Time. Record requests for emergency care only can be directed to [phone] at any time.[facility] Allergies Active Allergy Reactions Criticality Noted [...] 156 cm (5' 1.42) 01/27/2018 2:50 PM PICKLE PROCESSOR Body Mass Index 18.98 01/27/2018 2:50 PM PICKLE PROCESSOR Plan of Treatment Health Maintenance Due Date [...] Td or Tdap) 05/15/2025 05/16/2015 Care Teams Clerical Manager Relationship Specialty Start Date End Date Elsewhere, Pcp PCP - General Internal Medicine 02/18/22
--- OUTSIDE RECORDS SUMMARY | 2023-04-03 10:32 | XMS_ITS ---
Author Name Unknown Organization [facility] Address [address] [place] [address] Care Team Providers Care Senior Revenue Accountant Name Role Phone Unavailable Unavailable Unavailable Surgery Details Not on file Complications Check Surgery Details section. Procedure Estimated Blood Loss Check Surgery Details section. Procedure Findings Check Surgery Details section. Procedure Specimens Taken Check Surgery Details section.
--- NOTE | 2023-04-03 11:00 | CRLHL7_ITS ---
For Patients: As a result of the Century Cures Act, medical imaging exams and procedure reports are released immediately into your electronic medical record. You may view this report before your referring provider. If you have questions, please contact your health care provider. INDICATION: Lung mass. Cervical lymphadenopathy. TECHNIQUE: Volumetric helical scanning of the chest, abdomen and pelvis was performed with 52 cc of Isovue 370 contrast material IV. Coronal and sagittal reconstructions were obtained. COMPARISON: Abdomen/pelvis CT of 04/15/2013 FINDINGS: CHEST: A lobulated 3.4 x 3.1 cm left lower lobe mass is demonstrated. An infiltrate surrounding this mass is noted. No pleural effusion is evident. No hilar or mediastinal lymphadenopathy is demonstrated. On image 26 of series 3, a 1.1 x 0.9 cm ground-glass nodule is demonstrated in the right upper lobe. No other nodule is apparent. The heart is normal in size. Calcified coronary arterial plaque is demonstrated. ABDOMEN/PELVIS: Fatty change is demonstrated in the liver. The liver is normal in size and shape. Stones are noted in the gallbladder. The bile ducts are within normal limits. No lymphadenopathy is evident. No free fluid is demonstrated. The spleen and adrenal glands are negative. Calcifications in the pancreatic uncinate are demonstrated, suggesting chronic pancreatitis. The remainder the pancreas is unremarkable. The kidneys are unremarkable except for an exophytic 1.2 cm cyst arising from the lateral aspect of the lower left kidney. The bowel is unremarkable except for sigmoid diverticulosis. The uterus and ovaries are negative. No lytic or blastic bone lesion is identified. IMPRESSION: 1. Lobulated 3.4 x 3.1 cm left lower lobe mass, suspicious for bronchogenic carcinoma. No metastatic lesion identified. 2. 1.1 cm right upper lobe ground-glass nodule. 3. Fatty liver. 4. Cholelithiasis. 5. Apparent chronic pancreatitis involving the uncinate. Please note that all CT scans at this facility use dose modulation, iterative reconstruction, and/or weight-based dosing when appropriate to reduce radiation dose to as low as reasonably achievable. Dictated by Tyler Aguilar MD @ 04/03/2023 3:45:21 PM (Electronically Signed)
== END 2023-04-03 10:29 | disposition home or self-care (01) ==
LOC: CT 10:29
PROVIDERS: PCP Family Medicine; Visit Provider Family Medicine
DX: R91.8 Other nonspecific abnormal finding of lung field (principal); K76.0 Fatty (change of) liver, not elsewhere classified; K80.20 Calculus of gallbladder without cholecystitis without obstruction
CPT/HCPCS: 71260; 74177; Q9967

== ENCOUNTER 2023-04-16 08:52 | Outpatient (CLI) | payer BC, SELFPAY ==
--- OUTSIDE RECORDS SUMMARY | 2023-04-16 08:56 | XMS_ITS | Clinical Summary ---
Author Name Unknown Organization [facility] Address [address] [place] [address] Care Team Providers Care Professor Of Literature Name Role Phone Elsewhere, Pcp Primary Care Provider Unavailabl e Source Comments Patient records contain information from all sites at [facility]. For routine questions regarding patient records, call [phone] during business hours, M-F 8:00 AM - 5:00 PM Central Time. Record requests for emergency care only can be directed to [phone] at any time.[facility] Allergies Active Allergy Reactions Criticality Noted Date [...] 156 cm (5' 1.42) 01/27/2018 2:50 PM WATER SOFTENER SERVICER Body Mass Index 18.98 01/27/2018 2:50 PM WATER SOFTENER SERVICER Plan of Treatment Health Maintenance Due Date [...] Td or Tdap) 05/15/2025 05/16/2015 Care Teams Professor Of Literature Relationship Specialty Start Date End Date Elsewhere, Pcp PCP - General Internal Medicine 02/18/22
--- OUTSIDE RECORDS SUMMARY | 2023-04-16 08:57 | XMS_ITS | Referral Summary ---
Author Name Unknown Organization [facility] Address [address] [place] [address] Care Team Providers Care Color Laboratory Technician Name Role Phone Elsewhere, Pcp Primary Care Provider Unavailabl e Source Comments Patient records contain information from all sites at [facility]. For routine questions regarding patient records, call [phone] during business hours, M-F 8:00 AM - 5:00 PM Central Time. Record requests for emergency care only can be directed to [phone] at any time.[facility] Allergies Active Allergy Reactions Criticality Noted [...] 156 cm (5' 1.42) 01/27/2018 2:50 PM ASIC VERIFICATION ENGINEER Body Mass Index 18.98 01/27/2018 2:50 PM ASIC VERIFICATION ENGINEER Plan of Treatment Not on file Care Teams Color Laboratory Technician Relationship Specialty Start Date End Date Elsewhere, Pcp PCP - General Internal Medicine 02/18/22
--- OUTSIDE RECORDS SUMMARY | 2023-04-16 08:57 | XMS_ITS ---
Author Name Unknown Organization [facility] Address [address] [place] [address] Care Team Providers Care Naval Marine Engineer Name Role Phone Unavailable Unavailable Unavailable Surgery Details Not on file Complications Check Surgery Details section. Procedure Estimated Blood Loss Check Surgery Details section. Procedure Findings Check Surgery Details section. Procedure Specimens Taken Check Surgery Details section.
--- NOTE | 2023-04-16 09:00 | CRLHL7_ITS ---
For Patients: As a result of the Century Cures Act, medical imaging exams and procedure reports are released immediately into your electronic medical record. You may view this report before your referring provider. If you have questions, please contact your health care provider. ULTRASOUND-GUIDED RIGHT NECK BIOPSY CLINICAL HISTORY: Indeterminate solid palpable right neck mass. COMPARISON STUDIES: CT 03/21/2023 TECHNIQUE: Real-time ultrasound with image documentation was used for targeting the right neck lesion. Core biopsy specimens were obtained using an automated gun with a 18-gauge biopsy needle. CONSENT and TIME OUT: The procedure, risks, and alternatives were explained to the patient and a consent was signed. [place] Protocol was followed including pre-procedure verification that relevant information/documentation was available, reviewed and properly matched to the patient; consent accurate and complete; and equipment and supplies available. Time Out was conducted just prior to starting procedure to verify the four required elements: patient identity, correct side/site marked (if applicable), procedure, relevant images/results properly labeled and displayed (if applicable). PROCEDURE: The patient was positioned supine on the ultrasound table. The right side of the neck was prepped with ChloraPrep. 8 cc of 1 percent lidocaine was used for local anesthesia. Core samples were obtained. The specimens were placed in 10% formalin and sent to the pathology department. Pressure was held on the biopsy site until all bleeding subsided. LATERALITY: Right neck LESION: Solid hypoechoic mass measuring 3.7 x 1.8 x 2.6 cm at level 2. SUSPICION FOR MALIGNANCY: High NUMBER OF SAMPLES: 5 IMPRESSION: Ultrasound-guided right neck biopsy. Dictated by Eugenio Otoole MD @ 04/16/2023 10:20:45 AM (Electronically Signed)
== END 2023-04-16 08:53 | disposition home or self-care (01) ==
LOC: US 08:54
PROVIDERS: PCP Family Medicine; Visit Provider Family Medicine
DX: R22.1 Localized swelling, mass and lump, neck (principal); C96.9 Malignant neoplasm of lymphoid, hematopoietic and related tissue, unspecified; C79.89 Secondary malignant neoplasm of other specified sites; R59.0 Localized enlarged lymph nodes
CPT/HCPCS: 20206; 76942; 88305; 88342; A4649

== ENCOUNTER 2023-05-22 10:10 | Outpatient (CLI) | payer BC, SELFPAY ==
--- NOTE | 2023-05-22 10:30 | PE_ITS ---
[facility] [address] [facility] [address] Phone:?[phone] Fax:?[phone] Referring Physician Information: Clarissa Pederson M.D. [address] [facility] [address] Phone:?[phone] Fax:?[phone] Patient:Fermin Correa D.O.B:?1970 Sex:?Female Phone:?[phone] [facility] MRN:?[id number] Exam Date:?05/22/2023 EXAM: PET/CT EYES TO THIGHS, CANCER RESTAGING CLINICAL INFORMATION: Cervical cancer. Cervical lymphadenopathy. Lung mass. TECHNICAL INFORMATION: Helical acquisition of data was obtained from the orbits to the upper thighs with reconstruction of 3.75 mm thick images at 3.[address] data was used for attenuation correction. PET scanning was performed through the same anatomic range 57 minutes following administration of 12.33 mCi of 18-FDG delivered intravenously. The patient's glucose at the time of the injection was 96 mg/dL. PET, CT and PET/CT fusion images are interpreted using a computer viewing workstation. PET, CT and PET/CT fusion images were archived and saved in the patient's permanent medical record. COMPARISON: CT CAP from 04/03/2023. INTERPRETATION: Head and Neck: Markedly increased FDG uptake within the right oropharynx (base of tongue and tonsillar region; Se 2 Im 37), measuring roughly 2.2 x 2.2 cm with a maximum SUV of 18.57. Abnormal right level II cervical lymph node (Se 2 Im 42) measures approximately 2.5 x 2.0 cm with a maximum SUV of 10.98 and possible central necrosis. There is physiologic uptake in the intracranial soft tissues. Chest: Solid mass lesion in the left lower lobe (Se 2 Im 116) measures 3.4 x 3.1 cm with a maximum SUV of 15.6. Groundglass nodule in the right upper lobe (Se 2 Im 90) measures 1.2 x 1.0 cm, with background FDG uptake (which is not unexpected given its subsolid composition). There are no other abnormal hypermetabolic foci within the chest. Background mediastinal blood pool uptake has a maximum SUV of 1.86. No lung nodules or masses detected on this free-breathing exam. No lymphadenopathy detected. Abdomen and Pelvis: There are no abnormal hypermetabolic foci within the abdomen or pelvis. The uterus is present with no abnormal FDG uptake. Background hepatic parenchymal uptake has a maximum SUV of 1.91. There is physiologic excretion of radiotracer in the urine and bowel. Skeleton, Musculature, and Integument: No abnormal hypermetabolic foci within the skeleton. No tracee osteoblastic or osteolytic disease. CONCLUSION: 1. 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 Hypermetabolic left lung mass may be a large metastatic implant or a co-synchronous primary lung cancer. 2. Groundglass nodule in the right upper lobe shows background FDG uptake, indeterminate for postinflammatory residua versus low-grade neoplasm (e.g., AIS- BREANNA). This lesion is amenable to CT surveillance on annual basis (or as determined by the patient's clinical course given the aforementioned abnormalities). 3. The uterus is present with no abnormal FDG uptake. No evidence of active gynecologic malignancy. Electronically signed on 05/24/2023 12:31:00 PM by Taurus Hughes M.D.
== END 2023-05-22 10:11 | disposition home or self-care (01) ==
LOC: RAD 10:11
PROVIDERS: PCP Family Medicine; Visit Provider Internal Medicine Hematology & Oncology
DX: C53.9 Malignant neoplasm of cervix uteri, unspecified (principal); R91.8 Other nonspecific abnormal finding of lung field; K14.8 Other diseases of tongue
CPT/HCPCS: 78815; 80053; 80061; A9552

== ENCOUNTER 2023-05-29 10:09 | Outpatient (CLI) | payer BC, SELFPAY ==
--- NOTE | 2023-05-29 10:15 | MR_ITS ---
Patient: BROOKS DOTY Facility:?[facility] Patient ID:?[id number] Site Patient ID:?[id number]. Site :?1970 Study:?MRI-Head W/ and W/O Cont 15 CC DOTAREM-05/29/2023 11:46:06 AM Ordering Physician:?RUBÉN STOKES Final Report: INDICATION: Cervical cancer. TECHNIQUE: Multiplanar multisequence MR imaging of the brain prior to and following intravenous contrast. COMPARISON: MRI brain 01/08/2012. FINDINGS: Mild diffuse cerebral volume loss. No mass effect or midline shift. No parenchymal signal abnormalities. No pathologic intracranial enhancement. No intracranial hemorrhage or pathologic extra-axial fluid collection. No diffusion restriction to suggest acute infarction. The major arterial flow voids of the skullbase are preserved. The globes are symmetric. Mild right maxillary sinus mucosal thickening. Minimal right mastoid fluid. IMPRESSION: 1. No acute intracranial abnormality or evidence for intracranial metastatic disease. 2. Mild diffuse cerebral volume loss. Dictated by Joe Todd MD @ 05/29/2023 9:28:29 PM Signed by:?Joe Todd MD @05/29/2023 9:28:29 PM (Electronic Signature)
== END 2023-05-29 10:10 | disposition home or self-care (01) ==
LOC: MRI 10:10
PROVIDERS: PCP Family Medicine; Visit Provider Internal Medicine Hematology & Oncology
DX: C34.90 Malignant neoplasm of unspecified part of unspecified bronchus or lung (principal); R59.0 Localized enlarged lymph nodes; R91.8 Other nonspecific abnormal finding of lung field
CPT/HCPCS: 70553; A9575

== ENCOUNTER 2023-06-02 10:30 | Outpatient (RCR) | payer BC, SELFPAY ==
--- NOTE | 2023-06-16 16:37 | ONC.NURNOTE ---
Following up on patient due to her wanting biopsy at [facility] vs [facility]. Patient has been communicating and meeting up at [facility] so called her today to see where she was and if she planned to come here again and at this time she would like to have all her care in [place]. She will NOT be coming here for chemo at this point or follow up and is anxious to get started. Had phone visit appointment today and waiting for next step
== END 2023-10-27 23:59 | disposition home or self-care (01) ==
LOC: CCIC 10:30
PROVIDERS: PCP Family Medicine; Visit Provider Internal Medicine Hematology & Oncology
DX: C34.92 Malignant neoplasm of unspecified part of left bronchus or lung (principal)
CPT/HCPCS: 99202; 99205